=== PATIENT | female | born 1995 | race African-American/Black ===

== ENCOUNTER 2022-04-15 17:05 | Emergency (ER) | payer BC, SELFPAY ==
[2022-04-15 17:16] VITALS: BP 104/76; PULSE 113; RESP 16; TEMP 38.9; O2SAT 98
--- NOTE | 2022-04-15 17:19 | ED.URI ---
HPI - URI/Sore Throat General Chief Complaint: Upper Respiratory Infection Stated Complaint: uri Time Seen by Provider: 04/15/22 17:19 Source: patient and RN notes reviewed Mode of arrival: ambulatory Limitations: no limitations History of Present Illness HPI Narrative: 27-year-old female presents to the [facility] with complaints of body aches, sore throat, runny nose and feeling overheated since Tuesday, 2 days To treatment prior to her fall. Denies chest pain, abdominal pain. Works at [email or web address], denies anyone sick around her Onset (ago): day(s) (2) Related Data Home Medications Medication Instructions Recorded Confirmed No Home Medications 04/15/22 04/15/22 Allergies Allergy/AdvReac Type Severity Reaction Status Date / Time No Known Allergies Allergy Mild Verified 04/15/22 17:23 Review of Systems Review of Systems: All systems reviewed & are unremarkable except as noted in HPI and below Constitutional: Constitutional: Reports as per HPI, Denies chills and Reports fever(s) Eyes: Eyes: Reports no additional eye complaints ENT: Reports as per HPI and Reports sore throat Cardiovascular: Cardiovascular: Reports no additional cardiovascular complaints Respiratory: Respiratory: Reports no additional respiratory complaints Gastrointestinal: Gastrointestinal: Reports no additional gastrointestinal complaints Musculoskeletal: Musculoskeletal: Reports no additional musculoskeletal complaints Integumentary/Breasts: Skin/Breast: Reports system reviewed and no additional complaints, except as docu Neurologic: Reports system reviewed and no additional complaints, except as documented Psychiatric: Psychiatric: Reports no additional psychiatric complaints Allergic/Immunologic: Allergic/Immunologic: Reports no additional allergic/immunologic complaints PMFSH Social History Social History (Updated 04/15/22 @ 21:01 by Jada Decker APRN) Gender identity (if verbalized by the patient): Female Comments At the time of my signature, I reviewed and agree with the nursing past medical, surgical, social, and family history. There is no relevant family history pertinent to the patient complaint. Exam Const: General: no acute distress, alert, ill appearing acutely and well nourished Nutritional Appearance: well nourished Orientation/consciousness: patient oriented x3 Limitations: no limitations HENMT: Head: normal to inspection Ears: external ears normal, TM's normal bilaterally and EAC's normal Face/Nose/Sinus: Normal external nose present and Normal nares present Face and sinus: normal facial exam Mouth: Yes Normal oral and palatal mucosa present, Yes lip normal and Yes moist mucous membranes Throat: posterior oropharynx normal and uvula midline Eyes: General: appearance normal, both eyes and all related structures Conjunctivae: conjunctivae normal Pupils: Equal, round and reactive pupils present Neck: Neck: normal visual inspection, no lymphadenopathy and no meningeal signs Chest: Chest palpation & inspection: normal inspection of the chest Resp: Effort & Inspection: normal respiratory effort and no use of accessory muscles Auscultation: clear to auscultation bilaterally, no crackles, no rales, no rhonchi and no wheezes Cardio: Rate: regular rate Rhythm: regular rhythm Skin: General skin exam: normal color Rashes: no rashes Wounds: no wounds Neuro: General: patient oriented x3, moves all extremities, no meningeal signs and no focal motor deficits Cranial nerves: Yes Equal, round and reactive pupils present Speech: normal speech Gait exam (Neuro): Normal gait present Extrem: General: normal to inspection, full ROM and capillary refill normal Psych: Appearance: grossly normal and well kempt Mental Status: mental status grossly normal Affect: normal affect Attitude: cooperative Thought content: Yes Normal thought content present Course Course Emergency Course: Discharge instructions reviewed
== END 2022-04-15 17:38 | disposition home or self-care (01) ==
PROVIDERS: Emergency Provider Nurse Practitioner
DX: J10.1 Influenza due to other identified influenza virus with other respiratory manifestations (principal)
CPT/HCPCS: 87804; 99213; G0463

== ENCOUNTER 2022-06-14 18:35 | Emergency (ER) | payer BC, SELFPAY ==
[2022-06-14 18:43] VITALS: BP 114/66; PULSE 86; RESP 16; TEMP 37.4; O2SAT 100
--- NOTE | 2022-06-14 19:07 | ED.FEMALEGU ---
HPI - Female Genitourinary General Chief complaint: Urogenital-Female Stated complaint: Vaginal Problems Time Seen by Provider: 06/14/22 19:07 Source: patient, RN notes reviewed and old records reviewed Mode of arrival: ambulatory Limitations: no limitations History of Present Illness HPI Narrative: 27-year-old female presents to the [facility] with complaints of vaginal issues Reports that she saw her boom cat operator about 4 weeks ago and diagnosed with bacterial vaginitis and yeast infection. Has taken all of the medications as prescribed. States that the discomfort keeps getting worse. states she has not been sexually active since see boom cat operator. Denies any chances of STDs. Related Data Allergies Allergy/AdvReac Type Severity Reaction Status Date / Time No Known Allergies Allergy Mild Verified 06/14/22 19:03 Review of Systems Review of Systems: All systems reviewed & are unremarkable except as noted in HPI and below Constitutional: Constitutional: Reports no additional constitutional complaints Eyes: Eyes: Reports no additional eye complaints ENT: Reports system reviewed and no additional complaints, except as documented Cardiovascular: Cardiovascular: Reports no additional cardiovascular complaints, Denies chest pain and Denies dyspnea Respiratory: Respiratory: Reports no additional respiratory complaints, Denies chest congestion, Denies cough and Denies dyspnea Gastrointestinal: Gastrointestinal: Reports no additional gastrointestinal complaints, Denies abdominal pain, Denies nausea and Denies vomiting Genitourinary: Genitourinary: Reports as per HPI and Reports vaginal discharge Musculoskeletal: Musculoskeletal: Reports no additional musculoskeletal complaints Integumentary/Breasts: Skin/Breast: Reports system reviewed and no additional complaints, except as docu Neurologic: Reports system reviewed and no additional complaints, except as documented Psychiatric: Psychiatric: Reports no additional psychiatric complaints Allergic/Immunologic: Allergic/Immunologic: Reports no additional allergic/immunologic complaints PMFSH Social History Social History Gender identity (if verbalized by the patient): Female Comments At the time of my signature, I reviewed and agree with the nursing past medical, surgical, social, and family history. There is no relevant family history pertinent to the patient complaint. Exam Const: General: cooperative, healthy appearing, comfortable, no acute distress, well developed, alert and well nourished Nutritional Appearance: well nourished Orientation/consciousness: patient oriented x3 Limitations: no limitations HENMT: Head: normal to inspection Ears: hearing grossly normal bilaterally and external ears normal Face/Nose/Sinus: Normal external nose present, Normal nares present, Normal nasal mucous membranes and turbinates present and normal facial exam Face and sinus: normal facial exam Mouth: Yes Normal oral and palatal mucosa present, Yes lip normal and Yes moist mucous membranes Eyes: General: appearance normal, both eyes and all related structures Alignment and Position: alignment normal Periorbital: periorbital findings normal Conjunctivae: conjunctivae normal Pupils: Equal, round and reactive pupils present EOM: EOMs intact bilaterally Neck: Neck: normal visual inspection, full ROM, no lymphadenopathy and no meningeal signs Chest: Chest palpation & inspection: normal inspection of the chest Resp: Effort & Inspection: normal respiratory effort and able to speak in complete sentences Auscultation: clear to auscultation bilaterally, no crackles, no rales, no rhonchi and no wheezes Cardio: Rate: regular rate Rhythm: regular rhythm : General: Yes no CVA tenderness External Female Exam: normal external appearance Speculum Exam - Vagina: abnormal vaginal discharge white and malodorous Speculum Exam - Cervix: normal appearance of the
--- NOTE | 2022-06-14 19:28 | PC.NURSE ---
herpes cx sent to lab.
--- NOTE | 2022-06-14 19:29 | PC.NURSE ---
192 pelvic exam done by graduate engineer with rn at bedside.
== END 2022-06-14 19:30 | disposition home or self-care (01) ==
PROVIDERS: Emergency Provider Nurse Practitioner
DX: N76.0 Acute vaginitis (principal)
CPT/HCPCS: 87255; 99213; G0463

== ENCOUNTER 2023-05-16 16:29 | Outpatient (RCR) | payer OTHER, SELFPAY ==
[2023-05-13 11:48] VITALS: BP 112/68; PULSE 80
--- NOTE | ~2023-05-16 | US_ITS ---
EXAMINATION: US OB BPP wo non-stress DATE: 05/13/2023 11:51 INDICATION: IUGR during third trimester TECHNIQUE: Real-time pelvic ultrasound was performed. The interpreting radiologist was not present fo r the study. COMPARISON: None. FINDINGS: There is a single living fetus in vertex presentation. The placenta is posterior. heart rate is 130 beats per minute (bpm). Biophysical profile performed by the technologist: breathing (30 sec sustained breathing in 30 minutes): 2 out of 2 movement (3 gross body movements in 30 minutes): 2 out of 2 tone (one episode of dxkfmar-mljjoozsx-uoktyef limb movement): 2 out of 2 Amniotic fluid pocket (2 cm): 2 out of 2 Total score: 8 out of 8 IMPRESSION: 1. Single living fetus in vertex presentation. 2. Biophysical profile 8 out of 8. Reviewed, dictated and finalized at location [facility]. [facility] LAB TECHNICIAN
[2023-05-16 17:59] VITALS: BP 112/68; PULSE 80
== END 2023-08-11 23:59 | disposition home or self-care (01) ==
LOC: ANHOBOP 16:29
PROVIDERS: Visit Provider Obstetrics & Gynecology
DX: O36.5930 Maternal care for other known or suspected poor fetal growth, third trimester, not applicable or unspecified (principal); Z3A.35 35 weeks gestation of pregnancy; O36.8130 Decreased fetal movements, third trimester, not applicable or unspecified; Z3A.36 36 weeks gestation of pregnancy
CPT/HCPCS: 59025; 76819

== ENCOUNTER 2023-05-31 16:59 | Inpatient (IN) | payer OTHER, SELFPAY ==
[2023-05-31 17:33] VITALS: BP 125/85; PULSE 105
[2023-05-31 17:47] VITALS: BMI 37.0
[2023-05-31 17:48] LABS: Basophils Percent Auto 0.3 % (0.2-1.2); Eosinophils Absolute Auto 0.1 K/mm3 (0-0.3); Eosinophils Percent Auto 0.8 % (0-4.4); Hemoglobin 11.2 g/dL (12.0-15.0); Immature Granulocyte Absolute 0.06 K/mm3 (0.00-0.031); Immature Granulocyte Percent A 0.5 % (0-0.5); Lymphocytes Absolute Auto 1.93 K/mm3 (0.9-3.2); Lymphocytes Percent Auto 16.7 % (18.3-44.2); Mean Corpuscular Hemoglobin 27.6 pg (26-34); Mean Corpuscular Volume 86.2 fl (80-100); Mean Platelet Volume 10.7 fl (7.4-10.4); Monocytes Absolute Auto 0.7 K/mm3 (0.1-0.6); Monocytes Percent Auto 6.1 % (2.6-8.5); Neutrophils Absolute Auto 8.8 K/mm3 (1.3-6.7); Neutrophils Percent Auto 75.6 % (45.5-73.1); Platelet Count Result 241 k/mm3 (150-375); Red Blood Count 4.06 M/mm3 (4.2-5.4); Red Cell Distribution Width 15.4 % (11.5-14.5); White Blood Count 11.6 K/mm3 (4.5-10.0)
--- NOTE | 2023-05-31 17:49 | LDADM ---
This patient, Frank Harris, was admitted to Labor/Delivery/Recovery 107 on 05/31/23 at 16:59. Plans for labor, pain management and were discussed with patient. Patient/family oriented to hospital policies and general routines including ID bracelet, bed and alarms, visiting hours, pain management, procedures, bathroom and other care routines, personal items, smoking policy, room service/diet and guest tray routines, security routines, and visiting hours. Patient/Family are encouraged to report perceived risks to care and to ask questions if they do not understand what they are told or what they should do. See OBIX for further documentation.
[2023-05-31 18:00] VITALS: BP 127/75; PULSE 81
[2023-05-31] MEDS: LACTATED RINGERS 1,000 ML 125 ML IV CONT (18:15)
[2023-05-31] MEDS: OXYTOCIN 30 UNITS/NS 500 ML 30 UNITS/500 ML BAG IV CONT (18:16)
[2023-05-31 18:28] VITALS: TEMP 36.6
--- NOTE | 2023-05-31 20:08 | WPDANESEPP ---
Anes - Eval Pre Procedure Procedure: labor epidural Date/Time: 05/31/23 20:08 Pre Op Diagnosis: IOL Patient Data Age: 28 Gender: F Height: 1.65 m Weight: 101 kg Last Vital Signs Temp 36.6 C 05/31/23 18:28 Pulse 81 05/31/23 18:00 BP 127/75 05/31/23 18:00 O2 Del Method Room Air 05/31/23 17:47 Allergies Allergy/AdvReac Type Severity Reaction Status Date / Time No Known Allergies Allergy Mild Verified 05/23/23 14:27 Home Medications Medication Instructions Recorded Confirmed Type vit no.95-ferrous 1 tablet PO DAILY 05/13/23 05/23/23 History fumarate 28 mg-folic acid 800 mcg tablet () Laboratory Tests 05/31/23 17:35 WBC 11.6 H K/mm3 (4.5-10.0) RBC 4.06 L M/mm3 (4.2-5.4) Hgb 11.2 L g/dL (12.0-15.0) Hct 35.0 L % (37.0-47.0) MCV 86.2 fl (80-100) MCH 27.6 pg (26-34) MCHC 32.0 g/dl (32-36) RDW 15.4 H % (11.5-14.5) Plt Count 241 k/mm3 (150-375) MPV 10.7 H fl (7.4-10.4) Immature Gran % (Auto) 0.5 % (0-0.5) Neut % (Auto) 75.6 H % (45.5-73.1) Lymph % (Auto) 16.7 L % (18.3-44.2) Mccormick % (Auto) 6.1 % (2.6-8.5) Eos % (Auto) 0.8 % (0-4.4) Baso % (Auto) 0.3 % (0.2-1.2) Lymph # (Auto) 1.93 K/mm3 (0.9-3.2) Mccormick # (Auto) 0.7 H K/mm3 (0.1-0.6) Eos # (Auto) 0.1 K/mm3 (0-0.3) Baso # (Auto) 0.0 K/mm3 (0.0-0.1) Abs Immat Gran (auto) 0.06 H K/mm3 (0.00-0.031) Absolute Neuts (auto) 8.8 H K/mm3 (1.3-6.7) Absolute Nucleated RBC 0.0 K/mm3 (0.0-0.012) Nucleated RBC % 0.0 % (0.0-0.2) RPR Pending Blood Type A Positive Antibody Screen Negative Patient hx anesthesia problems: none Family hx anesthesia problems: none Results Review: All pre-operative results and documents have been reviewed as part of the pre-operative evaluation. [facility] Past Medical History Medical History (Updated 05/31/23 @ 20:09 by Sinai Dang CRNA) Obese Family History Family History Father Gout Hypertension Mother Hypertension Grandparent Congestive heart failure Hypertension Grandparent No problems noted. Social History Social History Smoking status: Never smoker Substance use: never Lack of Transportation: No Lack of Food: Never True Current Housing: I Have Housing Concerned About Future Housing: No Difficulty Paying Gas/Electric Bills: No Difficulty Paying for Meds: No Currently Unemployed: No Education: Bachelor's Degree Difficulty w/ Childcare or Family Care: No Gender identity (if verbalized by the patient): Female Spiritual care concerns: No Exam Day of Procedure 05/31/23 20:08 Patient weight: obese Heart: regular rate and rhythm Lungs: normal air movement Airway: Mallampati scale Neurological: alert and oriented
[2023-05-31 23:54] VITALS: TEMP 36.8
[2023-06-01] VITALS (120 sets, daily range): BP systolic 76–147; BP diastolic 25–127; PULSE 64–213; RESP 18; TEMP 36.3–37.3; O2SAT 98–100
[2023-06-01] MEDS: LACTATED RINGERS 1,000 ML 125 ML IV CONT ×3 (02:02→10:51)
--- NOTE | 2023-06-01 07:47 | WPDOBADMIT ---
Obstetrics - Admit Note Admission Note: record reviewed. No pertinent additions to the history and/or any subsequent changes in the physical findings that are not consistent with the expected course of the were found. Additions to the history and/or subsequent changes in the physical findings follow. Pt here for IOL for IUGR. SVE /-2. AROM moderate amount of clear odorless fluid. Anticipate vaginal delivery.
[2023-06-01] MEDS: fentaNYL CITRATE INJ (*CRX) 100 MCG/2 ML VIAL 50 MCG IV PUSH (08:44)
--- NOTE | 2023-06-01 14:07 | PM.OBPRVD ---
OB - Vaginal Delivery Note Procedure Delivery date: 06/01/23 Events: Intrauterine Growth Restriction (IUGR) Induction method: AROM and Per Pitocin Protocol Delivery monitor: External FHT and Internal Uterine Route of delivery: Episiotomy description: None Laceration Description: Perineal - 2nd Degree Delivery repair: vicryl Specimen: Yes Quantitative Blood Loss (ml): 300 Anesthesia type: Epidural Disposition: Floor Complications: None Baby Date of : 06/01/23 Time of : 13:47 Weeks of gestation at delivery: 39 gender: Male Weight (pounds): 6 Weight (ounces): 6 presentation: vertex Placenta delivery description: Spontaneous Cord Vessel Description: 3 Vessels, Nuchal Cord, Loose and Around Extremity (left arm) score one minute: 8 score five minutes: 9
[2023-06-01] MEDS: miSOPROStol 200 MCG TABLET 1000 MCG (14:13)
--- NOTE | 2023-06-01 14:22 | PM.OBPRVD ---
OB - Vaginal Delivery Note Procedure Delivery date: 06/01/23 Events: Intrauterine Growth Restriction (IUGR) Laceration Description: Perineal - 2nd Degree Anesthesia type: Epidural Complications: Other complications (PPH identified. Retained placenta removed. Cytotec administered. Fundus remains boggy. Methergine and Cate placed) [place] Baby Date of : 06/01/23 Time of : 13:47 Weeks of gestation at delivery: 39 Infant gender: Male Weight (pounds): 6 Weight (ounces): 6 presentation: vertex Placenta delivery description: Spontaneous Cord Vessel Description: 3 Vessels, Nuchal Cord, Loose and Around Extremity (left arm) score one minute: 8 score five minutes: 9
[2023-06-01] MEDS: METHYLERGONOVINE MALEATE 0.2 MG/ML VIAL IM (14:23)
[2023-06-01] MEDS: OXYTOCIN 30 UNITS/NS 500 ML 30 UNITS/500 ML BAG 999 UNITS IV CONT (14:35)
[2023-06-01 14:39] LABS: Rapid Plasma Reagin Non-Reactive (NonReactive)
[2023-06-01] MEDS: OXYTOCIN 30 UNITS/NS 500 ML 30 UNITS/500 ML BAG 125 UNITS IV CONT (14:47)
[2023-06-01] MEDS: ceFAZolin 2 GM/D5W 50 ML 2 GM/50 ML BAG IVPB (15:39)
--- NOTE | 2023-06-01 18:27 | PM.OBPNVD ---
OB - PN: Subj Subjective Date/time seen: 06/01/23 18:27 Interval history: bleeding minimal, deflated cervical cuff and waited 30 minutes. courtney removed, fundus firm at [facility]. OB - PN: Obj Data Labs 05/31/23 17:35 Labs: Laboratory Results - last 24 hr 05/31/23 17:35 RPR Non-reactive Blood Type A Positive Antibody Screen Negative OB - PN A/P Time Spent With Patient Time: Total time spent is greater than 50% in coordination of care (as documented) at patient's floor/unit and/or counseling patient:
--- NOTE | 2023-06-01 18:43 | OBPPTRN ---
Patient transferred to post room #280 via wheelchair. Family present. Oriented to unit, room, information board, rooming in, admission packet and security measures. Patient verbalizes understanding.
[2023-06-01] MEDS: IBUPROFEN 600 MG TABLET PO (20:30)
[2023-06-02 00:55] VITALS: BP 108/70; PULSE 83; RESP 18; TEMP 36.7; O2SAT 96
[2023-06-02 04:03] VITALS: BP 118/55; PULSE 89; RESP 18; TEMP 36.6; O2SAT 100
[2023-06-02 05:20] LABS: Hemoglobin 10.5 g/dL (12.0-15.0)
[2023-06-02 07:25] VITALS: BP 112/73; PULSE 77; RESP 16; TEMP 37.1; O2SAT 100
--- NOTE | 2023-06-02 08:02 | PM.OBPNVD ---
OB - PN: Subj Subjective Date/time seen: 06/02/23 08:02 Interval history: bleeding minimal, deflated cervical cuff and waited 30 minutes. courtney removed, fundus firm at [facility]. Patient comments: no complaints, pain well controlled, incisional pain, tolerating diet and flatus present OB - PN: Obj Data Labs 06/02/23 03:52 Labs: Laboratory Results - last 24 hr 05/31/23 06/02/23 17:35 03:52 Hgb 10.5 L Hct 33.0 L RPR Non-reactive OB - PN A/P Plan day: 1 Plan: routine care Comments: No problems, routine care Time Spent With Patient Time: Total time spent is greater than 50% in coordination of care (as documented) at patient's floor/unit and/or counseling patient: Exam Const: General: comfortable, no acute distress and alert Resp: Effort & Inspection: normal respiratory effort Auscultation: no crackles, no rales and no rhonchi Cardio: Rate: regular rate Heart sounds: no click, no murmurs and no rubs GI: Inspection: non-distended GI Palp: No Tenderness to palpation present (GI) Auscultation: normal bowel sounds Other: Incision - CDI Extrem: General: normal to inspection, no pedal edema and no calf tenderness
[2023-06-02] MEDS: IBUPROFEN 600 MG TABLET PO (08:39)
[2023-06-02] MEDS: DOCUSATE SODIUM 100 MG CAPSULE PO (08:40)
[2023-06-02] MEDS: MULTIVIT/MIN/PREN/FOL AC/IRON TABLET 1 TAB PO (08:40)
--- NOTE | 2023-06-02 08:53 | WPDANLDPN2 ---
Anes-Prog Note L&D Date/Time: 06/02/23 08:53 Comfortable throughout: labor and delivery Neuraxial method: epidural Epidural/Spinal procedure site: clean & non-tender Neuro status: Neuro function grossly intact. Cardiovascular status: normal Respiratory status: normal Airway patency: baseline Mental status: baseline Post-Op hydration status: normal Vital Signs: Last Vital Signs Temp 37.1 C 06/02/23 07:25 Pulse 77 06/02/23 07:25 Resp 16 06/02/23 07:25 BP 112/73 06/02/23 07:25 Pulse Ox 100 06/02/23 07:25 O2 Del Method Room Air 05/31/23 17:47 Pain score (VAS): 2/10 Post-procedural complaints: none Patient feedback: Patient satisfied with anesthetic care.
[2023-06-02 12:07] VITALS: BP 109/57; PULSE 74; RESP 16; TEMP 36.9; O2SAT 99
[2023-06-02 19:00] VITALS: BP 122/80; PULSE 92; RESP 18; TEMP 36.8
--- NOTE | 2023-06-03 07:46 | PM.OBPNVD ---
OB - PN: Subj Subjective Date/time seen: 06/03/23 07:46 Interval history: PPD 2 doing well desires DC home OB - PN: Obj Data Labs 06/02/23 03:52 OB - PN A/P Plan day: 2 Plan: routine care and discharge home Time Spent With Patient Time: Total time spent is greater than 50% in coordination of care (as documented) at patient's floor/unit and/or counseling patient: Review of Systems Review of Systems: All systems reviewed & are unremarkable except as noted in HPI and below Exam Const: General: cooperative, healthy appearing and comfortable Resp: Effort & Inspection: normal respiratory effort Cardio: Rate: regular rate GI: Other: soft Neuro: General: patient oriented x3 Extrem: Right lower extremity: normal to inspection Left lower extremity: normal to inspection Psych: Appearance: grossly normal
--- NOTE | 2023-06-03 07:48 | PM.OBDSVD ---
DS: Admitting Diagnosis Discharge Date 06/03/23 Admitting Diagnosis IOL IUGR DS: Discharge Diagnosis Discharge Diagnosis (1) Vaginal delivery: Code(s): O80 - Encounter for full-term uncomplicated delivery Status: Acute OB - DS: Summary OB Procedures : None OB Procedures Intrapartum: Spontaneous Vag Delivery OB Procedures: : None Peripartum Data Laceration Description: Perineal - 2nd Degree Episiotomy description: None Time Spent with Patient Time attestation: Total time spent providing and/or coordinating discharge services: DS: Data Data Completed and Pending Pending studies at discharge: Pending at discharge 06/01/23 13:50 Surgical [PTH] Routine Discharge Plan Discharge Attending physician on discharge: Kira Shelton Discharging Clinician: Cheryl Barksdale Patient Disposition: Home, Self-Care Activity: pelvic rest Diet: regular Patient Instructions: Antibiotic Form Stand Alone Forms: General Discharge Information Follow-up/Referrals: Cheryl Barksdale, CNM [Certified Nurse Office Machinery Or Equipment Installer] - 4 Weeks Discharge Medications: New ibuprofen 600 mg Tablet 600 mg PO Q6H PRN (Reason: Cramping) Qty: 30 0RF Continued PNV cmb#95-ferrous fumarate-FA [] 28 mg iron- 800 mcg Tablet 1 tablet PO DAILY Date of admission: 05/31/23 16:59 Primary Care Provider: PHYSICIAN,BODY SHOP ESTIMATOR Admitting Provider: Kira Shelton Attending physician on admission: Kira Shelton Condition: Stable
[2023-06-03 08:00] VITALS: PULSE 76; RESP 18; O2SAT 99
[2023-06-03 08:09] VITALS: BP 118/62; PULSE 76; RESP 18; TEMP 36.6; O2SAT 99
[2023-06-03] MEDS: MULTIVIT/MIN/PREN/FOL AC/IRON TABLET 1 TAB PO (08:50)
[2023-06-03] MEDS: DOCUSATE SODIUM 100 MG CAPSULE PO (08:50)
[2023-06-03] MEDS: IBUPROFEN 600 MG TABLET PO (08:51)
--- NOTE | 2023-06-03 10:55 | PC.NURSE ---
Patient viewed the discharge video Mother & Baby Care, The First Two Weeks . Patient was given the opportunity and encouraged to ask questions. Patient verbalized understanding of information shared and has been given the mother/baby guide for home reference.
--- NOTE | 2023-06-03 15:28 | PC.NURSE ---
[id number] Introductions were made, then consulted with patient to assess needs related to . Discussed with mother her?plans to pump and feed EBM with a bottle. Mother has 50mls sitting on her night stand as we discuss protecting her milk supply, her goals and pumping. Resources provided for inpatient and outpatient services with community [facility] connection, OB office and the mom/baby guide. Mother voiced understanding of information and will call if there is a request for assistance.
--- NOTE | 2023-06-03 15:36 | PC.NURSE ---
1215- Pt has been using her own pump. Instructions given on cleaning, care, usage, that there should be no pain, pumping schedule for milk production, collection, and storage of human milk. Encouraged to pump for comfort and nipple stretching/stimulation for adequate milk production every 3 hours (8 times in 24 hours) 1-2 times at night. Mother voiced understanding of the education shared along with mom/baby guide and reaching out to community/outpatient resources.
--- NOTE | 2023-06-03 15:42 | PC.NURSE ---
[id number] Introductions were made, then consulted with patient to assess needs related to . Discussed with mother her?plans to pump and feed EBM with a bottle since is not latching. Instructions given on cleaning, care, usage, that there should be no pain, pumping schedule for milk production, collection, and storage of human milk. Patient encouraged to pump for comfort and nipple stretching/stimulation for adequate milk production every 3 hours (8 times in 24 hours) 1-2 times at night.?Resources provided for inpatient and outpatient services with community [facility] connection, OB office and the mom/baby guide. Mother voiced understanding of information.
[2023-06-04 09:18] VITALS: BP 122/77; PULSE 98; RESP 18; TEMP 37; O2SAT 100
== END 2023-06-03 12:55 | disposition home or self-care (01) | DRG 768 ==
LOC: ANHLDR 06-01 08:30 → ANHOB2 06-01 19:00
PROVIDERS: Advanced Practice Midwife; Admitting Provider Obstetrics & Gynecology; Visit Provider Obstetrics & Gynecology
DX: O36.5930 Maternal care for other known or suspected poor fetal growth, third trimester, not applicable or unspecified (principal); Z37.0 Single live birth; O72.0 Third-stage hemorrhage; Z3A.38 38 weeks gestation of pregnancy; O70.1 Second degree perineal laceration during delivery; O69.82X0 Labor and delivery complicated by other cord entanglement, without compression, not applicable or unspecified
CPT/HCPCS: 36415; 85014; 85018; 85025; 86592; 86850; 86900; 86901; 88307; A9270; J0690; J2210; J2590; J2795; J3010; J7120

== ENCOUNTER 2023-11-14 22:34 | Emergency (ER) | payer OTHER, SELFPAY ==
[2023-11-14 22:42] VITALS: BP 118/95; PULSE 67; RESP 18; O2SAT 99
[2023-11-14 22:59] LABS: Basophils Percent Auto 0.3 % (0.2-1.2); Eosinophils Absolute Auto 0.3 K/mm3 (0-0.3); Eosinophils Percent Auto 2.4 % (0-4.4); Hematocrit 36.3 % (37.0-47.0); Hemoglobin 11.6 g/dL (12.0-15.0); Immature Granulocyte Absolute 0.02 K/mm3 (0.00-0.031); Immature Granulocyte Percent A 0.2 % (0-0.5); Lymphocytes Absolute Auto 3.65 K/mm3 (0.9-3.2); Lymphocytes Percent Auto 33.9 % (18.3-44.2); Mean Corpuscular Hemoglobin 27.2 pg (26-34); Mean Platelet Volume 9.5 fl (7.4-10.4); Monocytes Absolute Auto 0.7 K/mm3 (0.1-0.6); Monocytes Percent Auto 6.9 % (2.6-8.5); Neutrophils Absolute Auto 6.1 K/mm3 (1.3-6.7); Neutrophils Percent Auto 56.3 % (45.5-73.1); Platelet Count Result 300 k/mm3 (150-375); Red Blood Count 4.27 M/mm3 (4.2-5.4); Red Cell Distribution Width 13.6 % (11.5-14.5); White Blood Count 10.8 K/mm3 (4.5-10.0)
[2023-11-14 23:06] LABS: Appearance Urine Clear (Clear); Bacteria Urine Rare /hpf; Bilirubin Urine Negative (Negative); Blood Urine Negative (Negative); Color Urine Yellow (Yellow); Glucose Urine UA Negative (Negative); Ketones Urine Negative (Negative); Leukocyte Esterase Ur Trace LEU/UL (Negative); Nitrate Urine Negative (Negative); Non Pathogenic Casts 0-2; Protein Urine Negative (Negative); RBC Urine 0-2 /hpf (0-2); Specific Grav Ur 1.023 (1.001-1.035); Squamous Epithelial Cell Urine Occasional /hpf (Few); pH Urine 7.5 (5.0-9.0)
[2023-11-14 23:09] LABS: Add Urine Microscopic? YES
[2023-11-14 23:11] LABS: Alanine Aminotransferase 14 U/L (6-35); Albumin Level 4.1 g/dL (3.5-5.1); Alkaline Phosphatase 69 U/L (38-126); Anion Gap 7 mmol/L (4-12); Aspartate Amino Transferase 21 U/L (14-36); Bilirubin,Total 0.3 mg/dL (0.2-1.3); Blood Urea Nitrogen 15 mg/dL (7-17); Calcium 9.1 mg/dL (8.4-10.2); Carbon Dioxide 25 mmol/L (22-30); Chloride 106 mmol/L (98-107); Estimated CRCL calculation 117 ml/min; Estimated Glomerular Filt Rate > 60; Glucose 88 mg/dL (65-110); Lipase 61 U/L (23-300); Sodium 138 mmol/L (137-145)
--- NOTE | 2023-11-14 23:13 | ED.FEMALEGU ---
HPI - Female Genitourinary General Chief complaint: Abdominal Pain Stated complaint: groin pain Time Seen by Provider: 11/14/23 22:43 Source: patient Limitations: no limitations History of Present Illness HPI Narrative: Patient is a 28-year-old female presents to the emergency department complaining of vaginal burning and burning when she pees. Patient notes this been going on for the past 1 week, has not been taking any medications for it. Patient denies any vaginal discharge, recent injuries, fever, recent illness, dyspareunia, vaginal bleeding, vaginal sores or lesions. Patient admits to history of sexually transmitted infections in the past in which she had Trichomonas and was treated to completion. Patient admits to being sexually active. Patient denies abdominal pain, pelvic pain, rash. Patient's last menstrual period was about 2 weeks ago. Related Data Home Medications Medication Instructions Recorded Confirmed vit no.95-ferrous 1 tablet PO DAILY 05/13/23 05/23/23 fumarate 28 mg-folic acid 800 mcg tablet () Allergies Allergy/AdvReac Type Severity Reaction Status Date / Time No Known Allergies Allergy Mild Verified 05/23/23 14:27 Review of Systems Review of Systems: A 10 system review of systems was completed on the patient and is negative except for what is stated in the HPI. Nursing and ancillary documentation was reviewed. [facility] Past Medical History Medical History (Updated 11/14/23 @ 23:19 by Sukhwinder Pimentel DO) Obese Family History Family History Father Gout Hypertension Mother Hypertension Grandparent Congestive heart failure Hypertension Grandparent No problems noted. Social History Social History Smoking status: Never smoker Substance use: never Do You Feel Safe in your Home?: Yes Lack of Transportation: No Lack of Food: Never True Current Housing: I Have Housing Concerned About Future Housing: No Difficulty Paying Gas/Electric Bills: No Difficulty Paying for Meds: No Currently Unemployed: No Education: Bachelor's Degree Difficulty w/ Childcare or Family Care: No Gender identity (if verbalized by the patient): Female Spiritual care concerns: No Comments At time of signature, I have reviewed and agree with nursing past medical, surgical, social and family history unless otherwise noted. Please see the nursing chart for further information. There is no relevant family history pertinent to the presenting complaint. Exam Narrative: CONST: No acute distress. Well nourished. HENMT: Head is normocephalic and atraumatic. Moist mucous membranes. EYES: No conjunctival icterus, injection, or pallor. PERRL. RESP: Able to speak in full sentences. Normal respiratory effort. CTAB. CARDIO: Regular rate. Regular rhythm. 2+ DP and radial pulses bilaterally. GI: Nondistended. No tenderness to palpation. Soft. : No CVA tenderness to palpation. SKIN: No rashes or lesions noted on exposed skin. NEURO: Oriented x3. Moves all extremities. EXTREM/MSK/BACK: No pedal edema. PSYCH: Normal affect. Course Vital Signs Vital signs: Vital Signs Pulse Rate 67 11/14/23 22:42 Respiratory Rate 18 11/14/23 22:42 Blood Pressure 118/95 H 11/14/23 22:42 Pulse Oximetry 99 11/14/23 22:42 Pulse Rate 67 11/14/23 22:42 Respiratory Rate 18 11/14/23 22:42 Blood Pressure 118/95 H 11/14/23 22:42 Pulse Oximetry 99 11/14/23 22:42 MDM - Female Genitourinary MDM Narrative Medical decision making narrative: Patient presents with the above complaint. Initial vitals are remarkable for no significant abnormalities. Physical examination as noted above. Plan discussed: Laboratory analysis. Patient admits to point with a c s s representative regularly given her lack of vaginal discharge or pelvic pain
[2023-11-15 00:31] LABS: Trichomonas Vag PCR NOT DETECTED (NOT DETECTE)
[2023-11-15 00:54] LABS: Chlamydia trachomatis NOT DETECTED (NOT DETECTE); Neisseria gonorrhoeae PCR NOT DETECTED (NOT DETECTE)
== END 2023-11-15 01:13 | disposition home or self-care (01) ==
PROVIDERS: Physician Assistant; Emergency Provider Student in an Organized Health Care Education/Training Program
DX: N39.0 Urinary tract infection, site not specified (principal); E66.9 Obesity, unspecified; Z68.34 Body mass index [BMI] 34.0-34.9, adult
CPT/HCPCS: 36415; 80053; 81001; 81025; 83690; 85025; 87086; 87088; 87491; 87591; 87661; 96365; 99284; J0696

== ENCOUNTER 2024-01-24 19:49 | Emergency (ER) | payer OTHER, SELFPAY ==
[2024-01-24 20:02] VITALS: BP 117/86; PULSE 106; RESP 16; TEMP 36.8; O2SAT 100
--- NOTE | 2024-01-24 20:06 | PC.NURSE ---
pt verbalized chemical in November 2023
[2024-01-24 20:56] LABS: Influenza A QL RT-PCR Negative (Negative); Influenza B QL RT-PCR Negative (Negative); RSV RNA, RT-PCR Negative (Negative); SARS-CoV-2 RNA PCR Negative (Negative)
--- NOTE | 2024-01-24 22:28 | ED.URI ---
HPI - URI/Sore Throat General Chief Complaint: Upper Respiratory Infection Stated Complaint: URI Time Seen by Provider: 01/24/24 21:43 Source: patient Mode of arrival: ambulatory Limitations: no limitations History of Present Illness HPI Narrative: This is a 28 yo F who presents to the ED with chief complaint of URI symptoms x 1 day. 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 Pt is having congestion, chills, body aches and sore throat. No recorded fevers. Denies dyspnea, cough, CP, abdominal pain, N/V. Related Data Home Medications Medication Instructions Recorded Confirmed vit no.95-ferrous 1 tablet PO DAILY 05/13/23 05/23/23 fumarate 28 mg-folic acid 800 mcg tablet () Allergies Allergy/AdvReac Type Severity Reaction Status Date / Time No Known Allergies Allergy Mild Verified 05/23/23 14:27 Review of Systems Review of Systems: All systems as dictated in [facility] Past Medical History Medical History (Updated 01/24/24 @ 22:33 by Eric Valladares PA-C) Obese Family History Family History Father Gout Hypertension Mother Hypertension Grandparent Congestive heart failure Hypertension Grandparent No problems noted. Social History Social History Smoking status: Never smoker Substance use: never Do You Feel Safe in your Home?: Yes Lack of Transportation: No Lack of Food: Never True Current Housing: I Have Housing Concerned About Future Housing: No Difficulty Paying Gas/Electric Bills: No Difficulty Paying for Meds: No Currently Unemployed: No Education: Bachelor's Degree Difficulty w/ Childcare or Family Care: No Gender identity (if verbalized by the patient): Female Spiritual care concerns: No Exam Narrative: GENERAL: Well-appearing, well-nourished, and in no acute distress. HEAD: Normocephalic, atraumatic. EYES: PERRLA and EOMI. ENT: Nares clear, no rhinorrhea or epistaxis. Mucous membranes moist. Oropharynx without tonsillar hypertrophy exudate or other lesions. NECK: Supple. No adenopathy or masses. CHEST: No respiratory distress. Clear to auscultation. No wheezes rales or rhonchi HEART: Regular rate and rhythm. No murmur heard. Normal peripheral pulses. ABDOMEN: Soft, nontender, nondistended, normal active bowel sounds. MSK: Normal range of motion. No edema. SKIN: Warm, dry, no rash. NEURO: Alert and oriented x4. No focal deficits. PSYCH: Normal mood and affect. Course Vital Signs Vital signs: Vital Signs Temperature 98.3 F 01/24/24 20:02 Pulse Rate 106 H 01/24/24 20:02 Respiratory Rate 16 01/24/24 20:02 Blood Pressure 117/86 01/24/24 20:02 Pulse Oximetry 100 01/24/24 20:02 Oxygen Delivery Room Air 01/24/24 20:02 Temperature 98.3 F 01/24/24 20:02 Pulse Rate 106 H 01/24/24 20:02 Respiratory Rate 16 01/24/24 20:02 Blood Pressure 117/86 01/24/24 20:02 Pulse Oximetry 100 01/24/24 20:02 Oxygen Delivery Room Air 01/24/24 20:02 MDM - URI/Sore Throat MDM Narrative Medical decision making narrative: This 28 yo F patient presents with symptoms suspicious for likely viral upper respiratory infection. Differential includes bacterial pneumonia, sinusitis, allergic rhinitis, COVID. Viral swabs (-) here. Do not suspect underlying cardiopulmonary process. I considered, but think unlikely, dangerous causes of this patient?s symptoms to include ACS, CHF or COPD exacerbations, pneumonia, pneumothorax. Patient is nontoxic appearing and not in need of emergent medical intervention. Plan: reassurance, reassessment, over the counter medications, discharge with PCP followup Lab Data Labs: Lab Results 01/24/24 Range/Units 20:07 Influenza A (RT-PCR) Negative (Negative) Influenza B (RT-PCR) Negative (Negative) RSV (RT-PCR) Negativ
[2024-01-24 22:43] VITALS: BP 136/75; PULSE 86; RESP 16; TEMP 37.1; O2SAT 98
== END 2024-01-24 22:44 | disposition home or self-care (01) ==
PROVIDERS: Emergency Medicine; Emergency Provider Physician Assistant
DX: J06.9 Acute upper respiratory infection, unspecified (principal); Z20.822 Contact with and (suspected) exposure to COVID-19; E66.9 Obesity, unspecified; Z68.35 Body mass index [BMI] 35.0-35.9, adult
CPT/HCPCS: 87637; 99283

== ENCOUNTER 2024-08-28 07:58 | Emergency (ER) | payer OTHER, SELFPAY ==
--- NOTE | ~2024-08-28 | XR_ITS ---
EXAMINATION: XR chest 1V portable DATE: 08/28/2024 10:42 INDICATION: Flulike symptoms. TECHNIQUE: A single frontal view of the chest was obtained on 2 radiographs. COMPARISON: None. FINDINGS: There is no pneumonia, pleural effusion, or pneumothorax. The heart size is normal. IMPRESSION: 1. No acute cardiopulmonary disease. Reviewed, dictated and finalized at location B.
[2024-08-28 08:03] VITALS: BP 120/83; PULSE 112; RESP 16; TEMP 36.6; O2SAT 99
--- OUTSIDE RECORDS SUMMARY | 2024-08-28 08:04 | XMS_ITS | Data Portability ---
Author Organization [employer] , [facility] Address [address] [place] [address] Assessment Encounter Date Assessment Date Assessment LastModified by Organization Details LastModified Time 09/21/2022 09/21/2022 Patient is new to our Practice. She presents today for a gynecological Annual Exam. Patients Past Medical History and Family History reviewed. Annual Exam: She reports frequent BV and Yeast- education given. Her menses are regular, occurring every 1 month(s). Menses lasts for 5 days. Reports they are not heavy or painful. Denies spotting in between. LMP: 09/05/2022 Pt is currently using nothing for contraception. She is satisfied with her current method. Pap History: 2019 She is due for a pap smear. Breast History: She denies breast symptoms. Education on Breast Self Awareness given. Family History: Negative for Breast Cancer, Cervical Cancer, Colon Cancer, Endometrial Cancer and Ovarian Cancer. MYRisk test offered and declined. Social History: She is currently sexually active with a male partner. She denies complaints about sexual activity. Patient reports feeling safe at home from emotional, physical, and verbal abuse. She does not desire STD testing. Exercise: Occasional She wears her seat belt. She does not text and drive. The patient denies smoking and recreational drugs. She denies drinking alcohol. Patient is regularly seen by PCP for preventative care: Yes [email or web address] Not available 09/21/2022 16:59:14 Plan of Treatment Reminders Order Date Submit Date Provider Last Modified By Organization Details Last Modified Time Details Appointments None recorded. Lab bacterial vaginosis + vaginitis panel, vaginal 2022 023 [facility], [address] [place], [address], 3 14:44:09 unlisted lab - STD screening ([facility]) 2022 023 [facility], [address] [place], [address], 3 16:48:07 unlisted lab - Pap reflex hold [email or web address] [facility], [address] [place], [address], 3 17:24:47 pap, LB 2022 023 [facility], [address] [place], [address], 13:14:39 Referral None recorded. Procedures None recorded. Surgeries None recorded. Imaging None recorded. Medication Orders None recorded. Patient TargetsNo targets recorded. Patient Instructions Encounter Date Encounter Id Patient Instructions Last Modified By Organization Details Last Modified Time 09/21/2022 [id number] Patient Health Questionnaire-9* [email or web address] Not available 10/14/2022 14:28:02 A healthy lifestyle: care instructions [email or web address] Not available 09/21/2022 16:48:00 substance use disorder: care instructions [email or web address] Not available 09/21/2022 16:47:59 tobacco cessation [email or web address] Not availabl e 09/21/2022 16:48:00 Following the [employer] Food Guide: Care Instructions [email or web address] Not available 09/21/2022 16:48:00 exercise program : getting started [email or web address] Not available 09/21/2022 16:48:00 exposure to sexually transmitted infections: care instructions [email or web address] Not available 09/21/2022 16:48:13 contraception information [email or web address] Not available 09/21/2022 16:48:00 Certain habits m ay increase your risk: -lack of sleep -eating excessive amounts of sugar -not changing tampons or pads often enough -wearing tight, synthetic, or wet garments -using irritating bath products, laundry detergent, lubes, or spermicides -using a contraceptive sponge The following medications or conditions may also increase your risk: -stress -antibiotics -weak immune system -high blood sugar -hormonal imbalance near your menstrual cycle - Certain lifestyle changes can help reduce your risks for infection. -Wear loose fitting cotton clothing and underwear. -Change underwear often and keep pelvic area dry. -Use natural soaps and laundry detergent. -Avoid douching. -Eat foods rich in probiotics. -Change pads and tampons often. -Keep blood sugar levels under control. -Limit alcohol consumption. [email or web address] Not available 09/21/2022 17:00:30 Reason for Referral None Reported. Results Created Date Observation Date Name Description Value Unit Range Abnormal Flag Note LastModifiedBy Organization Detail LastModifiedTime 09/22/1909/22/2022 VAGIN ITIS PLUS STD PANEL bacterial vaginosis BV neg negati ve normal Not Available [facility] [address] [place] [address], [address], 09/22/2022 14:44:08 09/22/19 23 09/22/2022 VAGIN ITIS PLUS STD PANEL luna species C. spp neg negati ve normal Not Available [address], [address], 09/22/2022 14:44:08 09/22/19 23 09/22/2022 VAGIN ITIS PLUS STD PANEL luna glabrata C. gla neg negati ve normal Not Available [address], [address], 09/22/2022 14:44:08 09/22/19 23 09/22/2022 VAGIN ITIS PLUS STD PANEL trichomonas vaginalis CV/TV TRICH POS negati ve abnormal Not Available [address], [address], 09/22/2022 14:44:08 09/22/19 23 09/22/2022 VAGIN ITIS PLUS STD PANEL chlamydia trachomatis CT neg negati ve normal This repor t is inten ded for us in clini [facility] and manag ement of roberta casanova. It is not inten ded for use in medic al-le gal appli catio n. Not Available [address], [address], 09/22/2022 14:44:08 09/22/19 23 09/22/2022 VAGIN ITIS PLUS STD PANEL neisseria gonorrhoeae GC neg negati ve normal This repor t is inten ded for us in clini [facility] and manag ement of patielina nts. It is not inten ded for use in medic al-le gal appli catio n. Not Available [address], [address], 09/22/2022 14:44:08 09/22/19 23 09/22/2022 STD SCREE JORGE ALBERTO ([facility] ) hep BS Ag Non-Re active non-re active normal Not Available [address], [address], 09/22/2022 16:48:07 09/22/19 23 09/22/2022 STD SCREE JORGE ALBERTO ([facility] ) hep C Ab Non-Re active non-re active normal Not Available [address], [address], 09/22/2022 16:48:07 09/22/19 23 09/22/2022 STD SCREE JORGE ALBERTO ([facility] ) HIV 1/2 Ag/Ab Non-Re active non-re active normal Not Available [address], [address], 09/22/2022 16:48:07 09/22/19 23 09/22/2022 STD SCREE JORGE ALBERTO ([facility] ) syphilis Ab Non-Re active non-re active normal Not Available [address], [address], 09/22/2022 16:48:07 09/22/19 23 09/28/2022 THINP REP TIS PAP clinical information: normal None given Not Available [facility] [address] [place], [address], 09/28/2022 13:14:39 09/22/19 23 09/28/2022 THINP REP TIS PAP LMP: normal None given Not Available [address], [address], 09/28/2022 13:14:39 09/22/19 23 09/28/2022 THINP REP TIS PAP prev. Pap: normal None given Not Available [address], [address], 09/28/2022 13:14:39 09/22/19 23 09/28/2022 THINP REP TIS PAP prev. BX: normal None given Not Available [address], [address], 09/28/2022 13:14:39 09/22/19 23 09/28/2022 THINP REP TIS PAP source: normal None given Not Available [address], [address], 09/28/2022 13:14:39 09/22/19 23 09/28/2022 THINP REP TIS PAP statement of adequacy: normal Satis facto ry for evalu ation . Endoc ervic al/tr ansfo rmati on zone compo nent prese nt. Age and/o r menst rual statu s not provi ded Not Available [address], [address], 09/28/2022 13:14:39 09/22/19 23 09/28/2022 THINP REP TIS PAP interpretati on/result: normal Negat román for intra epith elial lesio n or malleoncio jackson . Not Available [address], [address], 09/28/2022 13:14:39 09/22/19 23 09/28/2022 THINP REP TIS PAP comment: normal This Pap test has been evalu ated with compu ter alan vince techn ology . Not Available [address] [address] [place], [address], 09/28/2022 13:14:39 09/22/1909/28/2022 THINP REP TIS PAP cytotechnolo gist: normal MDG, CT( CP) CT scree jorge alberto locat ion: [place] [address] [address] [place] [address] Not Available [address] [address] [place], [address], 09/28/2022 13:14:39 09/22/19 23 09/28/2022 THINP REP TIS PAP comment EXPLA NATOR Y NOTE: The Pap is a scree jorge alberto test for cervi kaiser cance r. It is not a diagn ostic test and is subje ct to false negat román and false posit román resul ts. It is most relia ble when a satis facto ry sampl e, regul will obtai linus, is submi tted with relev ant clini [facility] findi ngs and histo ry, and when the Pap resul t is evalu ated along with histo tanisha and curre nt clini [facility] infor matio n. Not Available [address] [address] [address], [place], [address], 09/28/2022 13:14:39 Result Notes None recorded. Procedures Surgical History Date Name Laterality Status Provider Name and Address Organization Details Recorded Time 09/21/2022 Date of Last Pap Smear completed [facility]- [address] [facility], [place], [address], [facility] 09/22/2022 15:10:09 Imaging Results None recorded. Procedure Notes None recorded. Medical Equipment None Reported. Allergies No known drug allergies Medications Name Sig Start Date Stop Date Status Note LastModified by Organization Details LastModified Time fluconazole 150 mg tablet TAKE DIRECTED 09/21 completed Not Available Not Available Not Available hydrocodone 5 mg-acetamin ophen 325 mg tablet TAKE 1 TABLET BY MOUTH EVERY 4 TO 6 HOURS NEEDED FOR PAIN 09/21 completed Not Available Not Available Not Available metronidazo le 0.75 % (37.5 mg/5 gram) vaginal gel INSERT VAGINALLY AT NIGHT FOR 5 DAYS 09/21 completed Not Available Not Available Not Available metronidazo le 500 mg tablet TAKE 1 TABLET BY MOUTH EVERY 12 HOURS FOR 7 DAYS active Not Available Not Available No t Available amoxicillin 875 mg tablet TAKE 1 TABLET BY MOUTH TWICE DAILY UNTIL GONE 09/21 completed Not Available Not Available Not Available ergocalcife rol (vitamin D2) 1,250 mcg (50,000 unit) capsule TAKE 1 CAPSULE BY MOUTH ONCE A WEEK 09/21 completed Not Available Not Available Not Available Vitals Date Recorded Body weight Body temperature Body mass index (BMI) Body height Systolic blood pressure Diastolic blood pressure Provider Name and Address Organization Details Last Updated DateTime 3 [address].5 2 g 97.7 [degF] 34.8 kg/m2 165.1 cm 120 mm[Hg] 84 mm[Hg] Consuelo Estrada [facility] 16:43:11 Social History Question Answer Notes LastModified by Organizat ion Details LastModified Time Tobacco Smoking Status Never Smoker Consuelo Atjoe null, [facility] 09/21/2022 16:38:46 What Is Your Level Of Alcohol Consumption? Moderate [email or web address] Information not available 09/21/2022 Are You Blind Or Do You Have Difficulty Seeing? No [email or web address] Information not available 09/21/2022 Are You Deaf Or Do You Have Serious Difficulty Hearing? No [email or web address] Information not available 09/21/2022 What Type Of Diet Are You Following? REGULAR Information not available 09/21/2022 Which Illicit Or Recreational Drugs Have You Used? Marijuana [email or web address] Information not available 09/21/2022 What Is Your Relationship Status? Single [email or web address] Information not available 09/21/2022 Are You Sexually Active? Yes [email or web address] Information not available 09/21/2022 Do You Use Any Illicit Or Recreational Drugs? Yes [email or web address] Information not available 09/21/2022 Do You Or Have You Ever Used Any Other Forms Of Tobacco Or Nicotine? No [email or web address] Information not available 09/21/2022 Sex: Unknown Functional Status Question Answer Note LastModified by Organization D etails LastModified Time What is your exercise level? Moderate [email or web address] Information not available 09/21/2022 Mental Status None recorded. Family History Relationship Description Onset Age of this Age Resolved Age Notes LastModified by Organization Details LastModified Time Mother Hypertensive disorder [email or web address] Not available 2022 16:34:19 Father Hypertensive disorder [email or web address] Not available 2022 16:34:19 Father Diabetes mellitus [email or web address] Not available 2022 16:34:19 Medical History No medical history recorded. Gynecological History Statement/Question Response Date of Last Colonoscopy Flow Moderate Date of LMP 09/05/2022 Date of Last Pap Smear 09/21/2022 Duration of Flow (days) 5 Most Recent Mammogram Current Control Method None Age at Menarche 12 Obstetrics History GPAL:G 0 P 0 0 0 0 Past Encounters Encounter ID Performer Location Encounter Start Date Encounter Closed Date Diagnosis/Indication Diagnosis SNOMED-CT Code Diagnosis ICD10 Code [id number] [facility] [address] [place] [address] 09/21/2022 16:30:43 09/22/2022 14:20:39 Gynecologic examination 98992660 Z01.419 Screening for malignant neoplasm of cervix 157497624 Z12.4 Contracept ion education 504467669 Z30.09 Contracept román counseling : Discussed options including OCPs, NuvaRing, Nexplanon, hormonal and copper IUDs. Discussed risks, efficacy, noncontrac eptive benefits, and side effects of each option, including risk of VTE with hormonal contracept ion and uterine perforatio n, expulsion, infection with IUD. Depression screening 171 384499 Z13.31 Screening for disorder 765341415 Z11.3 N89.9 Venereal d isease screening 490920342 Z11.3 Health Concerns Section Related Observation LastModified by Organization Detai ls LastModified Time None Recorded Concern Status LastModified by Organization Details LastModified Time None Recorded Advance Directives Directive None Recorded Payers Encounter Date Sequence Insurance Name Policy Number Policy Lazar Covered Member ID Lazar Member ID Guarantor Name 09/21/2022 1 [facility] Frank Harris [id number] Frank Harris Notes Date Note Type Note Provider Name and Address Organization Details Recorded Time 09/21/2022 text/html Annual GYNReport ed bypatient.Menstrua l cycle:Normal menses Urinary symptoms:No hematuria; No incontinence Vulva:No genital lesion Vagina:Normal vaginal discharge Breast:No breast pain; No breast lump; No nipple discharge Sexual complaints:No sexual complaints; No pain during intercourse; Normal libido Menopausal Symptoms:No menopausal symptoms; Normal vaginal lubrication Psychological symptoms:No depression; No anxiety; No PMDD Pt is here today for annual and pap. Last pap was 2019. Pt does want STD screening and blood work. Pt states she frequently gets BV and yeast infections and would like to know why does that happen so often for her. FLY RODRÍGUEZ, [facility]- [address] [facility], [place], [address], [facility] 09/21/2022 17:01:31 OBGyn Episode No OBEpisode recorded.
--- OUTSIDE RECORDS SUMMARY | 2024-08-28 08:05 | XMS_ITS | Data Portability ---
Author Organization [facility] Address [address] [place] [address] Assessment Encounter Date Assessment Date Assessment LastModified by Organization Details LastModified Time 09/30/2023 09/30/2023 Annual gynecological exam performed. Patient will come back in a year unless there are new symptoms. Take Calcium with Vitamin D 1200mg daily if not receiving in daily diet. It is strongly advised to have an annual flu shot and up can obtain at most pharmacies. If you have not had a TDap shot in the last 10 years you should obtain one as well. Discussed with patient & provided with information regarding Gardisil vaccine to prevent the 4 strains for HPV that cause cervical cancer if under age 26. Encourage safe sexual practices, to use condoms and limit partners if not already in a monogamous relationship. Do monthly self breast exams. Have mammogram yearly or every other year depending on family history. BRCA testing is now available for patients with strong genetic history of female cancer. If interested contact the office. Engage in daily exercise of low impact aerobic exercise 45-60 minutes 4-5 times weekly. Avoid tobacco and illicit drugs as well as using moderation with alcohol intake less than 1-2 8 oz beverages daily. This lifestyle behavior pattern will lead to less health conditions and longer life span. If BMI greater than 25 weight watchers or dietary consult advised. Patient received above instructions, and questions have been answered. If you have any questions please call or respond to this email. Patient was made aware of the patient portal and may obtain a paper copy of today's plan if desired. [email or web address] Not available 09/30/2023 16:55:31 Plan of Treatment Reminders Order Date Submit Date Provider Last Modified By Organization Details Last Modified Time Details Appointments None recorded. Lab urinalysis, dipstick 2023 024 [email or web address] [address], [address], [place], [address], 4 11:14:18 unlisted lab - women's health swab, BRICE 2023 024 [facility] (Lab), [address] [place], [address], 4 23:16:41 culture, urine 2023 [facility] (Lab), [address] [place], [address], 4 23:16:42 urinalysis, dipstick 2023 024 [email or web address] [address], [address], [place], [address], 4 10:23:51 Referral None recorded. Procedures None recorded. Surgeries None recorded. Imaging non-stress test 2022 023 [email or web address] [address], [address], [place], [address], 3 14:04:31 Medication Orders metronidazo le 0.75 % (37.5 mg/5 gram) vaginal gel 2023 024 [facility], [address] [place], [address], 4 10:57:14 Macrobid 100 mg capsule [address] [facility], [address] [place], [address], 4 10:22:06 Pyridium 100 mg tablet [address] [facility], [address] [facility], [place], [address], 4 10:22:08 Patient TargetsNo targets recorded. Patient InstructionsNo instructions recorded. Reason for Referral None Reported. Results Created Date Observation Date Name Description Value Unit Range Abnormal Flag Note LastModifiedBy Organization Detail LastModifiedTime 05/16/2005/16/2023 CULTU RE: GROUP B STREP SCREE N result report SEE RESULT S BELOW Test: Cultu re: Group B Strep Scree n - Vagin al/Re ctal Speci men Sourc e: Vagin a/Rec nancy Speci men Type: Vagin al/Re ctal Speci men Date: 05/16 5:14 PM Resul t Date: 05/19 12:44 PM Resul t Statu s: Final resul t Abnor mal: No Resul ting Lab: [facility] [address] [facility] [address] Tel: CULTU RE ----- ----- ----- --- No Group B strep isola vince at 2 days (miguelito ctive broth enhan cemen t) Not Available [facility] (Lab) [address] [facility], [place], [address], 05/19/2023 13:47:51 10/15/19 24 10/15/2023 urina lysis , dipst ick Leukocytes + Not Available Maria Luz vilchis [address], [place], [address], 10/15/2023 10:23:17 10/15/19 24 10/15/2023 urina lysis , dipst ick Nitrite NEG Not Available [address], [place], [address], 10/15/2023 10:23:17 10/15/19 24 10/15/2023 urina lysis , dipst ick Urobilinogen NEG Not Available Munir singh [address], [place], [address], 10/15/2023 10:23:17 10/15/19 24 10/15/2023 urina lysis , dipst ick Protein TRACE Not Available [address], [place], [address], 10/15/2023 10:23:17 10/15/19 24 10/15/2023 urina lysis , dipst ick pH 7 Not Available [address], [place], [address], 10/15/2023 10:23:17 10/15/19 24 10/15/2023 urina lysis , dipst ick Blood + Not Available [address], [place], [address], 10/15/2023 10:23:17 10/15/19 24 10/15/2023 urina lysis , dipst ick Specific [place] [address] [facility] [address], [place], [address], 10/15/2023 10:23:17 10/15/19 24 10/15/2023 urina lysis , dipst ick Ketone NEGT Not Available [address], [place], [address], 10/15/2023 10:23:17 10/15/19 24 10/15/2023 urina lysis , dipst ick Bilirubin NEG Not Available [facility] elina [address], [place], [address], 10/15/2023 10:23:17 10/15/19 24 10/15/2023 urina lysis , dipst ick Glucose NEG Not Available [address], [place], [address], 10/15/2023 10:23:17 10/15/19 24 10/15/2023 urina lysis , dipst ick Appearance CLOUDY Not Available Maria Luz vilchis [address], [place], [address], 10/15/2023 10:23:17 10/15/19 24 10/15/2023 urina lysis , dipst ick Color YELLOW Not Available [address], [place], [address], 10/15/2023 10:23:17 12/15/19 24 12/15/2023 BHCG, QUANT ITATI VE B-HCG <0.2 mIU/m L This assay was perfo rmed using [employer] ratio n reage nts and test kits. Value s obtai linus with other assay metho ds or kits canno t be used inter avila eably . Refer ence Range s: Non-p regna nt, preme nopau trey women : 0.0-5 .3 mIU/m L Postm enopa usal women : 0.0-7 .0 mIU/m L Jami l Pregn senthil: Gesta rome l Age bHCG Conc. - mIU/m L 3 Weeks 5.8 - 71.7 4 Weeks 9.5 - 750 5 Weeks 217-7 138 6 Weeks 158 - 31,79 5 7 Weeks 3,697 - 162,5 63 8 Weeks 32,06 5 - 149,5 71 9 Weeks 63,80 3 - 151,4 10 10 Weeks 46,50 9 - 186,9 77 12 Weeks 27,83 2 - 210,6 12 14 Weeks 13,95 0 - 62,53 0 15 Weeks 12,03 9 - 70,97 1 16 Weeks 9,040 - 56,45 1 17 Weeks 8,175 - 55,86 8 18 Weeks 8,099 - 58,17 6 Not Available [facility] (Lab) [address], [place], [address], 12/16/2023 06:18:10 05/08/20 24 05/08/2024 WOMEN 'S HEALT H SWAB, BRICE luna species, tma Negati ve negati ve Not Available [facility] (Lab) [address], [place], [address], 05/09/2024 23:16:41 05/08/20 24 05/08/2024 WOMEN 'S HEALT H SWAB, BRICE luna glabrata, tma Negati ve negati ve Not Available [facility] (Lab) [address] [facility], [place], [address], 05/09/2024 23:16:41 05/08/20 24 05/08/2024 WOMEN 'S HEALT H SWAB, BRICE trichomonas vaginalis, tma Negati ve negati ve This assay tests for and diffe renti ates dwaynewe en Elizabeth da glabr azeem, the Elizabeth da speci es group (C. albic ans, C. tropi calis , C. parap dayana is, C. dubli trevor is), and Trich omona s vagin sotero by Trans cript ion-M ediat ed Ampli ficat ion (TMA) . Not Available [facility] (Lab) [address] [facility], [place], [address], 05/09/2024 23:16:41 05/08/20 24 05/08/2024 WOMEN 'S HEALT H SWAB, BRICE bacterial vaginosis (bv), tma Positi ve negati ve abnormal This test detec ts ribos omal RNA from bacte kulwinder assoc iated with bacte rial vagin osis (BV), inclu ding Lacto bacil madison (L. gasse ri, L. crisp atus and L. jense aron), Gardn erell a vagin sotero, and Atopo bium vagin ae by Trans cript ion-M ediat ed Ampli ficat ion (TMA) . A singl e quali tativ e resul t is repor vince based on instr ument softw are to deter mine BV posit román or negat román statu s. Not Available [facility] (Lab) [address] [facility], [place], [address], 05/09/2024 23:16:41 05/08/20 24 05/08/2024 CULTU RE: URINE result report SEE RESULT S BELOW Test: Cultu re: Urine Speci men Sourc e: Urine - Clean Catch Speci men Type: Urine Speci men Date: 05/08 1017 Resul t Date: 05/09 2212 Resul t Statu s: Final resul t Abnor mal: No Resul ting Lab: [facility] [address] [facility] [address] Tel: CULTU RE ----- ----- ----- --- No growt h in 1 day (dete ction level of 10,00 0 colon ies / ml.) Not Available [facility] (Lab) [address], [place], [address], 05/09/2024 23:16:42 05/08/20 24 05/08/2024 urina lysis , dipst ick Leukocytes - Not Available [facility] [address], [place], [address], 05/08/2024 11:11:50 05/08/20 24 05/08/2024 urina lysis , dipst ick Nitrite - Not Available [address], [place], [address], 05/08/2024 11:11:50 05/08/20 24 05/08/2024 urina lysis , dipst ick Urobilinogen - Not Available [facility] samantha [address], [place], [address], 05/08/2024 11:11:50 05/08/20 24 05/08/2024 urina lysis , dipst ick Protein trace Not Available [address], [place], [address], 05/08/2024 11:11:50 05/08/20 24 05/08/2024 urina lysis , dipst ick pH 5 Not Available [address], [place], [address], 05/08/2024 11:11:50 05/08/20 24 05/08/2024 urina lysis , dipst ick Blood trace Not Available [address], [place], [address], 05/08/2024 11:11:50 05/08/20 24 05/08/2024 urina lysis , dipst ick Specific [place] 1.020 Not Available [facility] aman [address], [place], [address], 05/08/2024 11:11:50 05/08/2005/08/2024 urina lysis , dipst ick Ketone - Not Available [address], [place], [address], 05/08/2024 11:11:50 05/08/20 24 05/08/2024 urina lysis , dipst ick Bilirubin - Not Available [facility] antoine [address], [place], [address], 05/08/2024 11:11:50 05/08/20 24 05/08/2024 urina lysis , dipst ick Glucose - Not Available [address], [place], [address], 05/08/2024 11:11:50 05/08/20 24 05/08/2024 urina lysis , dipst ick Appearance clear Not Available [facility] [address], [place], [address], 05/08/2024 11:11:50 05/08/20 24 05/08/2024 urina lysis , dipst ick Color light yellow Not Available [address], [place], [address], 05/08/2024 11:11:50 04/29/2004/29/2023 non-s tress test No observ ation record ed. [email or web address] [address], [place], [address], 04/29/2023 16:31:36 04/29/2004/29/2023 US, obste tric, bioph ysica l profi le + non-s tress test No observ ation record ed. [email or web address] [address], [place], [address], 04/29/2023 17:56:17 04/29/2004/29/2023 US, doppl er, umbil ical arter y veloc imetr y No observ ation record ed. [email or web address] [address], [place], [address], 04/29/2023 17:56:08 04/29/20 23 04/29/2023 US, obste tric, bioph ysica l profi le + non-s tress test No observ ation record ed. FORTUNATO [address] [facility], [place], [address], 05/03/2023 16:55:02 05/05/20 23 05/04/2023 US, obste tric, follo w-up No observ ation record ed. [email or web address] [facility][note 2] [address] , [place], [address], 05/06/2023 10:35:41 05/06/20 23 05/06/2023 non-s tress test No observ ation record ed. [email or web address] [address], [place], [address], 05/06/2023 21:12:13 05/13/20 23 05/13/2023 non-s tress test No observ ation record ed. [email or web address] [facility] [address], [place], [address], 05/16/2023 16:21:37 05/13/20 23 05/13/2023 US, obste tric, bioph ysica l profi le No observ ation record ed. [email or web address] [facility] [address] [facility] [address], [place], [address], 05/16/2023 10:14:24 05/16/20 23 05/16/2023 non-s tress test No observ ation record ed. [address], [place], [address], 05/16/2023 17:09:39 05/16/20 non-s tress test No observ ation record ed. [email or web address] Not Available 05/16 17:13:32 05/27/20 23 05/27/2023 non-s tress test No observ ation record ed. [address], [place], [address], 05/27/2023 14:57:42 05/27/20 23 05/27/2023 US, obste tric, follo w-up No observ ation record ed. [email or web address] [address], [place], [address], 05/27/2023 16:15:00 05/27/20 23 05/27/2023 US, obste tric, follo w-up No observ ation record ed. [facility] [address], [place], [address], 05/27/2023 18:36:10 05/27/20 23 05/27/2023 US, obste tric, bioph ysica l profi le + non-s tress test No observ ation record ed. [facility] [address], [place], [address], 05/27/2023 18:36:20 Result Notes None recorded. Problems Name Problem SNOMED Code Status Onset Date Resolution Date Notes Provider Name and Address Organization Details Recorded Time 37482219 Completed 202206/06/2023 Mainor Albrecht [facility], [facility] 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 3 16:56:25 Spinal muscular atrophy 6029233 Completed carrier - 2 copies, SNP present [facility] 3 16:56:25 Alpha thalassem ia 43128445 Completed silent carrier [facility] 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 3 16:56:25 Placenta circumval shital 3994127 Completed serial growth [facility] 3 16:56:25 Problem Notes None recorded. Procedures Surgical History Date Name Laterality Status Provider Name and Address Organization Details Recorded Time 09/30/2023 Date of Last Pap Smear completed Niecy Ryan [facility] 09/30/2023 16:45:17 Imaging Results Imaging Date Name Status LastModified by [facility] Details LastModified Time 04/29/2023 non-stress test completed [email or web address] [facility], [place], [address], 04/29/2023 16:31:36 04/29/2023 US, obstetric, biophysical profile + non-stress test completed [email or web address] [facility] [address], [place], [address], 04/29/2023 17:56:17 04/29/2023 US, doppler, umbilical artery velocimetry completed [email or web address] [address], [place], [address], 04/29/2023 17:56:08 04/29/2023 US, obstetric, biophysical profile + non-stress test completed FORTUNATO [address], [place], [address], 05/03/2023 16:55:02 05/04/2023 US, obstetric, follow-up completed [address], [place], [address], 05/06/2023 10:35:41 05/06/2023 non-stress test completed [address], [place], [address], 05/06/2023 21:12:13 05/13/2023 non-stress test completed [address] [address], [place], [address], 05/16/2023 16:21:37 05/13/2023 US, obstetric, biophysical profile completed [address], [address], 05/16/2023 10:14:24 05/16/2023 non-stress test completed [address], [place], [address], 05/16/2023 17:09:39 05/16/2023 non-stress test completed [place] [address] Informati on not available 05/16/2023 17:13:32 05/27/2023 [email or web address] [place] [address] [address], [place], [address], 05/27/2023 14:57:42 05/27/2023 US, obstetric, follow-up completed [email or web address] [address], [place], [address], 05/27/2023 16:15:00 05/27/2023 US, obstetric, follow-up completed [facility] [address], [place], [address], 05/27/2023 18:36:10 05/27/2023 US, obstetric, biophysical profile + non-stress test completed [facility] [address], [place], [address], 05/27/2023 18:36:20 Procedure Notes None recorded. Medical Equipment None Reported. Allergies No known drug allergies Medications Name Sig Start Date Stop Date Status Note LastModified by Organization Details LastModified Time fluconazole 150 mg tablet TAKE 1 TABLET BY MOUTH ONCE DAILY DIRECTED FOR 1 DAY 03/25 completed Not Available Not Available Not Available hydrocodone 5 mg-acetamin ophen 325 mg tablet TAKE 1 TABLET BY MOUTH EVERY 4 TO 6 HOURS NEEDED FOR PAIN 11/12 completed Not Available Not Available Not Available fluconazole 200 mg tablet 05/08 completed Not Available Not Available Not Available metronidazo le 0.75 % (37.5 mg/5 gram) vaginal gel Insert 1 applicato rful every day by vaginal route for 5 days. 2023 active Not Available Not Available Not Avai lable clotrimazol e 1 % vaginal cream INSERT 1 APPLICATO RFUL VAGINALLY NIGHTLY FOR 7 DAYS 04/22 completed Not Available Not Available Not Available metronidazo le 500 mg tablet TAKE 1 TABLET BY MOUTH EVERY 12 HOURS FOR 7 DAYS 05/08 completed Not Available Not Available Not Available nystatin-tr iamcinolone 100,000 unit/gram-0 .1 % topical ointment APPLY OINTMENT TOPICALLY TO AFFECTED AREA TWICE DAILY 03/25 completed Not Available Not Available Not Available amoxicillin 875 mg tablet TAKE 1 TABLET BY MOUTH TWICE DAILY UNTIL GONE 11/12 completed Not Available Not Available Not Available phenazopyri dine 100 mg tablet 05/08 completed Not Available Not Available Not Available cephalexin 500 mg tablet TAKE 1 TABLET BY MOUTH EVERY 12 HOURS FOR 7 DAYS 05/08 completed Not Available Not Available Not Available ergocalcife rol (vitamin D2) 1,250 mcg (50,000 unit) capsule TAKE 1 CAPSULE BY MOUTH ONCE A WEEK 11/26 completed Not Available Not Available Not Available ibuprofen 600 mg tablet TAKE 1 TABLET BY MOUTH EVERY 6 HOURS NEEDED FOR CRAMPS 09/29 completed Not Available Not Available Not Available amoxicillin 875 mg-potassiu m clavulanate 125 mg tablet 05/08 completed Not Available Not Available Not Available nitrofurant oin monohydrate /macrocryst als 100 mg capsule 05/08 completed Not Available Not Available Not Available Vitamin 09/29 completed Not Available Not Available Not Available Vitals Date Recorded Body height Body mass index (BMI) Body weight Systolic blood pressure Diastolic blood pressure Provider Name and Address Organization Details Last Updated DateTime 05/27/2023 166.37 cm 36.4 kg/m2 230985.5 0614 g 124 mm[Hg] 84 mm[Hg] Niecy [facility] 3 15:58:03 Date Recorded Body height Body mass index (BMI) Body weight Systolic blood pressure Diastolic blood pressure Provider Name and Address Organization Details Last Updated DateTime 07/08/2023 166.37 cm 34.3 kg/m2 68351.81 g 122 mm[Hg] 81 mm[Hg] [facility] 4 15:05:57 Date Recorded Body height Body mass index (BMI) Body weight Systolic blood pressure Diastolic blood pressure Provider Name and Address Organization Details Last Updated DateTime 09/30/2023 166.37 cm 35.4 kg/m2 33549.95 g 126 mm[Hg] 80 mm[Hg] [facility] 4 16:44:56 Date Recorded Body height Body mass index (BMI) Body weight Systolic blood pressure Diastolic blood pressure Provider Name and Address Organization Details Last Updated DateTime 10/15/2023 166.37 cm 36 kg/m2 96336.88 g 131 mm[Hg] 80 mm[Hg] Corinne Ramos [facility] 4 10:14:44 Date Recorded Body height Body mass index (BMI) Body weight Systolic blood pressure Diastolic blood pressure Provider Name and Address Organization Details Last Updated DateTime 05/08/2024 166.37 cm 36.7 kg/m2 318417.6 9 g 123 mm[Hg] 79 mm[Hg] Jessica Rodriguez [facility] 4 10:21:56 Social History Question Answer Notes LastModified by Organizat ion Details LastModified Time Tobacco Smoking Status Former Smoker Niecy hughes, [facility] 11/12/2022 16:09:50 What Is Your Level Of Alcohol Consumption? None [email or web address] Information not available 11/12/2022 If You Are , What Was Your Level Of Alcohol Consumption Prior To ? Occasional Information not available 11/12/2022 Are You Blind Or Do You Have Difficulty Seeing? No Information not available 11/12/2022 What Is Your Level Of Caffeine Consumption? None [email or web address] Information not available 11/12/2022 In The 14 Days Before Symptom Onset, Have You Had Close Contact With A Laboratory-confir med COVID-19 While That Case Was Ill? No [email or web address] Information not available 11/12/2022 In The 14 Days Before Symptom Onset, Have You Had Close Contact With A Person Who Is Under Investigation For COVID-19 While That Person Was Ill? No [email or web address] Information not available 11/12/2022 Have You Been To An Area Known To Be High Risk For COVID-19? No [email or web address] Information not available 11/12/2022 Are You Deaf Or Do You Have Serious Difficulty Hearing? No [email or web address] Information not available 11/12/2022 What Type Of Diet Are You Following? REGULAR [email or web address] Information not available 11/12/2022 What Is The Highest Grade Or Level Of School You Have Completed Or The Highest Degree You Have Received? [id number] [email or web address] Information not available 11/12/2022 What Is Your Occupation? [employer] [email or web address] Information not available 11/12/2022 Are There Any Guns Present In Your Home? No [email or web address] Information not available 11/12/2022 Do You Use Protection During Sex? No [email or web address] Information not available 11/12/2022 Do You Use Your Seat Belt Or Car Seat Routinely? Yes [email or web address] Information not available 11/12/2022 Do You Have Smoke And Carbon Monoxide Detectors In Your Home? Yes [email or web address] Information not available 11/12/2022 How Much Tobacco Do You Smoke? No [email or web address] Information not available 11/12/2022 Do You Feel Stressed (tense, Restless, Nervous, Or Anxious, Or Unable To Sleep At Night)? PS2415-1 [email or web address] Information not available 11/12/2022 Do You Use Any Illicit Or Recreational Drugs? No [email or web address] Information not available 11/12/2022 Do You Use Sunscreen Routinely? No [email or web address] Information not available 11/12/2022 Has Tobacco Cessation Counseling Been Provided? No [email or web address] Information not available 11/12/2022 Have You Used IV Drugs? No [email or web address] Information not available 11/12/2022 Do You Or Have You Ever Used Any Other Forms Of Tobacco Or Nicotine? No [email or web address] Information not available 11/12/2022 Sex: Unknown Functional Status Question Answer Note LastModified by Organizat ion Details LastModified Time Do you have difficulty walking or climbing stairs? No [email or web address] Information not available 11/12/2022 Are you able to walk? [email or web address] Information not available 11/12/2022 Are you able to care for yourself? Yes [email or web address] Information not available 11/12/2022 Do you have difficulty dressing or bathing? No [email or web address] Information not available 11/12/2022 What is your exercise level? Moderate [email or web address] Information not available 11/12/2022 Mental Status None recorded. Family History Relationship Description Onset Age of this Age Resolved Age Notes LastModified by Organization Details LastModified Time Father Diabetes mellitus [email or web address] Not available 11/12 16:09:19 Father Hypertensive disorder [email or web address] Not available 11/12 16:09:27 Mother Hypertensive disorder [email or web address] Not available 11/12 16:09:32 Medical History Condition Response Allergies (Food, seasonal, environmental ) N Other N Breast Cancer N Drug/Latex Allergies/Reactions N Blood Transfusion N Dermatologic Disorders N Lung Disease N Defects or Inherited Disease N Breast Problem N Gestational Diabetes N Hematologic disorders N Anesthesia Complications N History of STI Y Deep Vein Thrombosis N Polycystic ovary syndrome N Anxiety Disorder N Autoimmune disease N Arthritis N Infertility N Polyps N Acid Reflux (GERD) N History of abnormal pap N Cancer N Stroke N Varicosities N Neurologic/Epilepsy N Endometriosis N High Cholesterol N Headaches N Fibromyalgia N Kidney Disease N Heart Problems N Kidney or Bladder Problems N Thyroid Problems N GI Problems N Eating Disorder N Anemia N Art (IVF or FET) N Psychiatric Illness N Ovarian Cancer N Diabetes N Pulmonary (TB, Asthma) N Hepatitis/Liver Disease N No Past Medical History Y Eczema N Urinary Tract Infection N Abuse/Domestic Violence N Asthma N Trauma/Violence N Depression/ depression N Heart Disease N Pre-Eclampsia N Hypertension N Osteoporosis N Thrombophilias N Gynecological History Statement/Question Response Flow Heavy Date of Last Mammogram Date of LMP 04/23/2024 On BCP's at Conception? N N Was last menstrual period normal Y STIs/STDs Y HPV Vaccine N Duration of Flow (days) 5 Current Control Method None Are cycles usually normal Y Frequency of Cycle (Q days) 28 Sexually Active? Y Menses Monthly Y Date of DEXA bone scan Age of first menstrual cycle 12 Date of Last Pap Smear 09/30/2023 Sexual Problems? N LMP Definite N Obstetrics History GPAL:G 2 P 1 0 1 1 Type Value Full Term 1 Spontaneous 1 Living 1 Total 2 Past Encounters Encounter ID Performer Location Encounter Start Date Encounter Closed Date Diagnosis/Indication Diagnosis SNOMED-CT Code Diagnosis ICD10 Code Diagnosis Note [id number] Maite Mcdowell [facility] [address] [address] 11/12/2022 14:42:11 11/12/2022 15:57:33 [id number] Cheryl Barksdale CNM [facility] [address] [address] 11/12/2022 14:43:10 11/12/2022 16:52:11 Amenorrhea 40088790 N91.2 reviewed office, precaution s folder, education done f/u new ob and first lookdental letter givenrec request sent Venereal d isease screening 683203009 Z11.3 [id number] Maite Mcdowell [facility] [address],[place] [address] 11/26/2022 11:48:52 11/26/2022 13:54:50 Uncertain viability of 682531505 O36.80X0 Z3A.11 [id number] Vini Shelton MD [facility] [address],[place] [address] 11/26/2022 13:03:45 11/26/2022 13:42:04 Routine care 310792381 Z34.01 [id number] Cheryl Barksdale [facility] [address],[place] [address] 12/08/2022 17:44:43 12/09/2022 09:35:45 Vaginitis 57682253 N76.0 culture sent monitor sxs, f/u ob visit [id number] Cheryl Barksdale [facility] [address],[place] [address] 12/24/2022 14:49:45 12/24/2022 15:10:52 Routine care 207016194 Z34.92 [id number] [facility] [address],[place] [address] 12/24/2022 14:50:13 12/24/2022 16:17:18 [id number] [facility] [address],[place] [address] 01/21/2023 13:58:02 01/21/2023 15:15:24 screening for malformation 189709831 Z36.3 [id number] Cheryl Barksdale [facility] [address],[place] [address] 01/21/2023 13:58:23 01/25/2023 10:27:09 Vaginitis 90153463 N76.0 culture sent monitor sxs, f/u ob visit Routine an tenatal care 555436172 Z34.92 [id number] Maite Vermilion [facility] [address],[place] [address] 02/16/2023 16:52:14 02/17/2023 12:23:59 screening 676998780 Z36.2 Z3A.23 [id number] [facility] [address],[place] [address] 02/16/2023 16:52:36 02/17/2023 12:25:11 Routine care 272486619 Z34.92 [id number] Tami Plasencia [facility] [address],[place] [address] 03/25/2023 11:59:52 03/25/2023 13:30:59 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 Z3A.28 [id number] DOREEN OROPEZA MD [facility] [address],[place] [address] 03/25/2023 12:01:37 03/25/2023 14:49:30 Routine care 867208107 Z34.93 [id number] Amparo Morris [facility] [address],[place] [address] 04/21/2023 09:25:41 04/21/2023 10:32:44 Small for gestational age fetus 662957391 O36.5930 O43.113 Z3A.32 [id number] Corinne Ramos [facility] [address],[place] [address] 04/21/2023 10:41:51 04/21/2023 11:12:39 Small for gestational age fetus 714216235 O36.5930 O43.113 Z3A.32 [id number] Cheryl Barksdale CNM [facility] [address],[place] [address] 04/22/2023 15:00:49 04/22/2023 15:26:46 Routine care 913034453 Z34.92 [id number] DOREEN OROPEZA MD [facility] [address],[place] [address] 04/29/2023 15:57:42 05/01/2023 12:33:26 Gestation period, 33 weeks 14452916 Z3A.33 grow th restriction 45661348 O36.5999 Placenta circumvallata 6608687 O43.113 Z3A.28 [id number] [facility] [address],[place] [address] 04/29/2023 15:58:08 04/29/2023 16:33:41 growth restriction 51071264 O36.5999 [id number] Tami Plasencia [facility] [address],[place] [address] 04/29/2023 15:58:29 05/01/2023 12:35:43 Small for gestational age fetus 567922052 O36.5930 Z3A.33 [id number] [facility] [address],[place] [address] 05/06/2023 15:56:58 05/06/2023 16:51:49 Small for gestational age fetus 173133242 O36.5930 O43.113 Z3A.32 [id number] Cheryl Barksdale [facility] [address],[place] [address] 05/06/2023 15:57:22 05/06/2023 16:59:16 Routine care 205990690 Z34.92 [id number] DOREEN OROPEZA MD [facility] [address],[place] [address] 05/16/2023 15:26:26 05/17/2023 09:48:19 Gestation period, 36 weeks 82564772 Z3A.36 grow th restriction 38926870 O36.5999 screening 2437 78984 Z36.85 [id number] [facility] [address],[place] [address] 05/16/2023 15:26:48 05/16/2023 17:11:24 Placenta circumvallata 5520415 O43.113 Z3A.28 [id number] [facility] [address],[place] [address] 05/27/2023 14:24:19 05/27/2023 14:59:30 growth restriction 10070963 O36.5999 [id number] Amparo Morris [facility] [address],[place] [address] 05/27/2023 14:24:41 05/28/2023 14:06:40 Small for gestational age fetus 746623753 O36.5930 O43.113 Z3A.37 [id number] Cheryl Barksdale [facility] [address],[place] [address] 05/27/2023 14:25:03 05/27/2023 16:49:08 Routine care 218853259 Z34.92 [id number] Niecy Ryan [facility] [address],[place] [address] 07/08/2023 14:57:18 07/08/2023 15:25:49 care 420845253 Z39.2 normal pp exam f/u october wwe [id number] Cheryl Barksdale [facility] [address],[place] [address] 09/30/2023 16:11:46 09/30/2023 16:58:13 Gynecologic examination 54515496 Z01.419 [id number] Salome Dietrich [facility] [address],[place] [address] 10/15/2023 10:07:42 10/15/2023 10:25:21 Urinary symptoms 382517923 R39.9 Suspect UTI on urine dip todayUrine culture sentCounse led on medication R/B's, Most common side effects, & use. All questions were answered to patient satisfacti on.Decline d STD Time spent in visit is a total of 18 mins with at least 50% of visit consisting of counseling and review of plan of care. [id number] Jessica Rodriguez [facility] [address],[place] [address] 05/08/2024 10:14:00 05/08/2024 10:59:43 Irregular periods 01333985 N92.6 Discussed treatment options for irregular menstrual bleeding, such as regulating cycles with hormonal control. Patient declines this option as she may want to try to conceive in the next year.Linsey montgomery will follow-up if bleeding irregulari ty persists. Discussed that OCPs can be prescribed to take BID x 10 days to help stop constant bleeding/s potting if it returns.Di scussed that if bleeding irregulari ty continues, labs and pelvic ultrasound may be recommende d as well.Linsey montgomery verbalized understand ing. Vaginal discharge 373445 006 N89.8 Discussed empirical treatment with metronidaz ole vaginal gel for suspected BV based on reported symptoms and physical exam findings.D iscussed vulvar care guidelines in addition to laundry/sk in irritants to avoid.Moise mmended boric acid capsules - insert one capsule vaginally at H.S. after period, intercours e, and/or with symptoms.B V/yeast/tr ich panel sent. Health Concerns Section Related Observation LastModified by Organization Detai ls LastModified Time None Recorded Concern Status LastModified by Organization Details LastModified Time None Recorded Advance Directives Directive None Recorded Payers Encounter Date Sequence Insurance Name Policy Number Policy Lazar Covered Member ID Lazar Member ID Guarantor Name 05/27/2023 2 [facility] [id number] Frank Harris [id number] Frank Harris 05/27/2023 1 [facility] [id number] Frank Harris [id number] Frank Harris 07/08/2023 2 [facility] [id number] Frank Harris [id number] Frank Harris 07/08/2023 1 [id number] Frank Harris [id number] Frank Harris 09/30/2023 [id number] Frank Harris [id number] Frank Harris 10/15/2023 1 [facility] [employer] (PPO) [id number] Frank Harris [id number] Frank Harris 05/08/2024 1 [facility] [id number] Frank Steven [id number] Gloriamonica Steven Notes Date Note Type Note Provider Name and Address Organization Details Recorded Time 4 text/html VisitReported bypatient.Quality: Context:complications of : IUGR; complications of labor: ; complications: hemorrhage; feeding choice: breast and bottle; good support from partner/family; resumed menstrual bleeding yes; SALONI after delivery Associated Symptoms:no abnormal bleeding; no vaginal discharge; no pelvic pain; laceration well healed; no constipation; no fecal incontinence; no dysuria; no urinary incontinence; no fever; no problems; no mastitis; normal mood Contraception Plan:declines contraceptionNotes:doi ng well baby now 10lbs! declines bcm Niecy hughes, [facility] 07/08/2023 16:52:49 4 text/html Annual GYNReported bypatient.History:no gynecologic complaints Menstrual cycle:cycles a little irregular, not more than once a month, not skipping more than a month Urinary symptoms:No hematuria Breast:No breast pain; No breast lump; No nipple discharge Sexual complaints:No sexual complaints; No pain during intercourse; Normal libido Menopausal Symptoms:No menopausal symptoms; Normal vaginal lubrication Psychological symptoms:No depression; No anxiety; No PMDD Preventive measures:Encourage self breast examination; Encourage regular exercise; Encourage no tobacco useNotes:declines any testing, bcm doing well! baby getting big! Cheryl Barksdale, ADÁN [address], [place], [address], [facility] 09/30/2023 16:55:49 4 text/html Here today for urinary frequency, urgency, dysuria. Neg pain of abd/pelvis/flankNeg GI sx'sNeg N/V/F/C/DNeg Vag d/c, odor, irritation, itchingMonogamous Salome Dietrich, [facility] [address], [place], [address], [facility] 10/15/2023 10:24:27 4 text/html Patient here to discuss irregular bleeding that has occurred since having miscarriage in November 2023. Patient states that she was diagnosed with a chemical and had a bHCG lab drawn that showed that her bHCG returned to normal.Patient states that she would have regular periods q28 days that lasted 5 days, and then would have intermittent spotting until next period.Patient denies dizziness, pelvic pain, fatigue, or syncope.Patient states that she had a normal period this month and has not had any spotting.Patient states that she does not want to be on hormonal control. Patient also reports intermittent BV infections d/t the frequent bleeding. Reports vaginal discharge and odor. Jessica Rodriguez [facility], [facility] 05/08/2024 11:14:51 OBGyn Episode Ob Episode Information Episode Created Date Number of Fetuses Patient Bloodtype Patient rh Status Prepregnancy Weight lbs Domestic Partner Domestic Partner Phone Father Name Medication Care Manager Status 11/27/19 23 1 A Positive 206 CLOSED Fetus Data First Name Last Name Admitted to NICU Weight (g) Sex Living Outcome Pediatric Complications Fetus ID Race Codes Race Delivery Type Armari 2891.64 9 M true Full Term [email or web address] Vaginal Delivery Problems Problem Notes PER 05/20 [facility] NOTE - To del er between 38w0d & 39w0d!! Induction scheduled for 05/31 @ 1700. Pt informed. 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 Patric Calculation Initial Patric Date Initial Exam Date Initial Exam Provider Initial Ultrasound Date Last Menstrual Period Date Ultra Sound Weeks Gestation 06/12/2023 11/26/2022 11/12/2022 09/05/2022 9 Eighteen To Twenty Week Patric Update Ultra Sound Date Fundal Height At Umbil Quickening Date Ultra Sound Latest Weeks Gestation Final Patric Confirmed By Final Patric Confirmed Date Final Patric Date Ultra Sound Latest Days Gestation 0 [email or web address] 11/26/2022 06/12/20 23 0 Pre- Flowsheet Flowsheet Date 11/26/2022 Jsoeph Score Blood Edema Fundus Height Fundus Units Glucose Ketones Leukocytes Nitrite Labor Signs Protein Cervic Dilation Cervic Effacement Cervic Station Type Weight in lbs Pre/Post Dialysis Refused BP Diastolic BP Location Tested BP Systolic BP Type Fetus Heart Rate Present Fetus Movement Comments Flowsheet Date 11/26/2022 Joseph Score Blood Edema Fundus Height Fundus Units Glucose Ketones Leukocytes Nitrite Labor Signs Protein Cervic Dilation Cervic Effacement Cervic Station 11 Type Weight in lbs Pre/Post Dialysis Refused Weight 204.832920269815 BP Diastolic BP Location Tested BP Systolic BP Type 77 R arm 113 sitting Fetus Heart Rate Present A 145 Fetus Movement Comments 27-year-old 1 at 11 weeks gestation who presents for initial care. She has no complaints today other than decreased energy. She has no remarkable medical, surgical, obstetric history. We talked about care in detail. She is vaccinated for COVID. She will begin routine care. Flowsheet Date 12/08/2022 Joseph Score Blood Edema Fundus Height Fundus Units Glucose Ketones Leukocytes Nitrite Labor Signs Protein Cervic Dilation Cervic Effacement Cervic Station neg none none trace Type Weight in lbs Pre/Post Dialysis Refused Weight 206.027953973194 BP Diastolic BP Location Tested BP Systolic BP Type 71 112 Fetus Heart Rate Present Fetus Movement A No Comments patient is having some vagin al discharge. Flowsheet Date 12/24/2022 Joseph Score Blood Edema Fundus Height Fundus Units Glucose Ketones Leukocytes Nitrite Labor Signs Protein Cervic Dilation Cervic Effacement Cervic Station neg none none trace Type Weight in lbs Pre/Post Dialysis Refused Weight 205.813299895648 BP Diastolic BP Location Tested BP Systolic BP Type 79 128 Fetus Heart Rate Present A 152 Present Fetus Movement A No Comments patient is having some cramp ing and discharge. swab last time negative, reviewed precautions gender ID today, samples of vitamins given, f/u 4 weeks with anatomy scan Flowsheet Date 12/24/2022 Joseph Score Blood Edema Fundus Height Fundus Units Glucose Ketones Leukocytes Nitrite Labor Signs Protein Cervic Dilation Cervic Effacement Cervic Station Type Weight in lbs Pre/Post Dialysis Refused BP Diastolic BP Location Tested BP Systolic BP Type Fetus Heart Rate Present Fetus Movement Comments Flowsheet Date 01/21/2023 Joseph Score Blood Edema Fundus Height Fundus Units Glucose Ketones Leukocytes Nitrite Labor Signs Protein Cervic Dilation Cervic Effacement Cervic Station Type Weight in lbs Pre/Post Dialysis Refused BP Diastolic BP Location Tested BP Systolic BP Type Fetus Heart Rate Present Fetus Movement Comments Flowsheet Date 01/21/2023 Joseph Score Blood Edema Fundus Height Fundus Units Glucose Ketones Leukocytes Nitrite Labor Signs Protein Cervic Dilation Cervic Effacement Cervic Station neg none none trace Type Weight in lbs Pre/Post Dialysis Refused Weight 207.256566407983 BP Diastolic BP Location Tested BP Systolic BP Type 80 121 Fetus Heart Rate Present Fetus Movement A Yes Comments patient states that has vagi nal odor. no d/c arnold or burning, metrogel to pharmacy, anatomy incomplete f/u 4 weeks precautions rveiewed Flowsheet Date 02/16/2023 Joseph Score Blood Edema Fundus Height Fundus Units Glucose Ketones Leukocytes Nitrite Labor Signs Protein Cervic Dilation Cervic Effacement Cervic Station Type Weight in lbs Pre/Post Dialysis Refused BP Diastolic BP Location Tested BP Systolic BP Type Fetus Heart Rate Present Fetus Movement Comments Flowsheet Date 02/16/2023 Joseph Score Blood Edema Fundus Height Fundus Units Glucose Ketones Leukocytes Nitrite Labor Signs Protein Cervic Dilation Cervic Effacement Cervic Station neg none none trace Type Weight in lbs Pre/Post Dialysis Refused Weight 212.27455807176 BP Diastolic BP Location Tested BP Systolic BP Type 74 122 Fetus Heart Rate Present Fetus Movement A Yes Comments patient is having some pain and vaginal itching. culture taken metrogel called out, anatomy complete efw 42% f/u 4 weeks with gct and growth, precautions and education Flowsheet Date 03/25/2023 Joseph Score Blood Edema Fundus Height Fundus Units Glucose Ketones Leukocytes Nitrite Labor Signs Protein Cervic Dilation Cervic Effacement Cervic Station Type Weight in lbs Pre/Post Dialysis Refused BP Diastolic BP Location Tested BP Systolic BP Type Fetus Heart Rate Present Fetus Movement Comments Flowsheet Date 03/25/2023 Joseph Score Blood Edema Fundus Height Fundus Units Glucose Ketones Leukocytes Nitrite Labor Signs Protein Cervic Dilation Cervic Effacement Cervic Station none none trace Type Weight in lbs Pre/Post Dialysis Refused Weight 213.653316817821 BP Diastolic BP Location Tested BP Systolic BP Type 82 124 Fetus Heart Rate Present Fetus Movement Comments Baby active. Denies ctx, LOF , VB. GCT done today. Discussed tdap/flu vaccines. RTC 2 weeks. Flowsheet Date 04/21/2023 Joseph Score Blood Edema Fundus Height Fundus Units Glucose Ketones Leukocytes Nitrite Labor Signs Protein Cervic Dilation Cervic Effacement Cervic Station Type Weight in lbs Pre/Post Dialysis Refused BP Diastolic BP Location Tested BP Systolic BP Type Fetus Heart Rate Present Fetus Movement Comments Flowsheet Date 04/21/2023 Joseph Score Blood Edema Fundus Height Fundus Units Glucose Ketones Leukocytes Nitrite Labor Signs Protein Cervic Dilation Cervic Effacement Cervic Station Type Weight in lbs Pre/Post Dialysis Refused BP Diastolic BP Location Tested BP Systolic BP Type Fetus Heart Rate Present Fetus Movement Comments Flowsheet Date 04/22/2023 Joseph Score Blood Edema Fundus Height Fundus Units Glucose Ketones Leukocytes Nitrite Labor Signs Protein Cervic Dilation Cervic Effacement Cervic Station neg trace none trace Type Weight in lbs Pre/Post Dialysis Refused Weight 218.822030286878 BP Diastolic BP Location Tested BP Systolic BP Type 79 128 Fetus Heart Rate Present A 147 Present Fetus Movement A Yes Comments patient is having some swell ing. doing well, +FM reviewed US, will have mfm US weekly testing scheduled. precautions reviewed Flowsheet Date 04/29/2023 Joseph Score Blood Edema Fundus Height Fundus Units Glucose Ketones Leukocytes Nitrite Labor Signs Protein Cervic Dilation Cervic Effacement Cervic Station 1+ Type Weight in lbs Pre/Post Dialysis Refused Weight 217.776843493148 BP Diastolic BP Location Tested BP Systolic BP Type 73 115 Fetus Heart Rate Present A 140 Fetus Movement A Yes Comments Good movement. No ctx, bleeding, LOF. Seeing MFM on Tuesday. Baby shower this ! Received Tdap. Swelling stable. BPP 03/29, UADs wnl. Flowsheet Date 04/29/2023 Joseph Score Blood Edema Fundus Height Fundus Units Glucose Ketones Leukocytes Nitrite Labor Signs Protein Cervic Dilation Cervic Effacement Cervic Station Type Weight in lbs Pre/Post Dialysis Refused BP Diastolic BP Location Tested BP Systolic BP Type Fetus Heart Rate Present Fetus Movement Comments Flowsheet Date 04/29/2023 Joseph Score Blood Edema Fundus Height Fundus Units Glucose Ketones Leukocytes Nitrite Labor Signs Protein Cervic Dilation Cervic Effacement Cervic Station Type Weight in lbs Pre/Post Dialysis Refused BP Diastolic BP Location Tested BP Systolic BP Type Fetus Heart Rate Present Fetus Movement Comments Flowsheet Date 05/06/2023 Joseph Score Blood Edema Fundus Height Fundus Units Glucose Ketones Leukocytes Nitrite Labor Signs Protein Cervic Dilation Cervic Effacement Cervic Station Type Weight in lbs Pre/Post Dialysis Refused BP Diastolic BP Location Tested BP Systolic BP Type Fetus Heart Rate Present Fetus Movement Comments Flowsheet Date 05/06/2023 Joseph Score Blood Edema Fundus Height Fundus Units Glucose Ketones Leukocytes Nitrite Labor Signs Protein Cervic Dilation Cervic Effacement Cervic Station neg trace none trace Type Weight in lbs Pre/Post Dialysis Refused Weight 219.755282323858 BP Diastolic BP Location Tested BP Systolic BP Type 75 117 Fetus Heart Rate Present Fetus Movement A Yes Comments patient is having pain, disc harge, and swelling. saw mfm and had us today, nst here reactive awaiting us report. precautions and education delivery per mfm between 37-39 weeks Flowsheet Date 05/06/2023 Joseph Score Blood Edema Fundus Height Fundus Units Glucose Ketones Leukocytes Nitrite Labor Signs Protein Cervic Dilation Cervic Effacement Cervic Station Type Weight in lbs Pre/Post Dialysis Refused BP Diastolic BP Location Tested BP Systolic BP Type Fetus Heart Rate Present Fetus Movement Comments Flowsheet Date 05/16/2023 Joseph Score Blood Edema Fundus Height Fundus Units Glucose Ketones Leukocytes Nitrite Labor Signs Protein Cervic Dilation Cervic Effacement Cervic Station Type Weight in lbs Pre/Post Dialysis Refused Weight 222.50758976377 BP Diastolic BP Location Tested BP Systolic BP Type 80 121 Fetus Heart Rate Present A 140 Fetus Movement A Yes Comments No issues, baby active. No c tx or VB. NST nonreactive, decelerations from 140 to 90 for 30 seconds. To [facility] for further monitoring. GBS collected today. Flowsheet Date 05/16/2023 Joseph Score Blood Edema Fundus Height Fundus Units Glucose Ketones Leukocytes Nitrite Labor Signs Protein Cervic Dilation Cervic Effacement Cervic Station Type Weight in lbs Pre/Post Dialysis Refused BP Diastolic BP Location Tested BP Systolic BP Type Fetus Heart Rate Present Fetus Movement Comments Flowsheet Date 05/16/2023 Joseph Score Blood Edema Fundus Height Fundus Units Glucose Ketones Leukocytes Nitrite Labor Signs Protein Cervic Dilation Cervic Effacement Cervic Station Type Weight in lbs Pre/Post Dialysis Refused BP Diastolic BP Location Tested BP Systolic BP Type Fetus Heart Rate Present Fetus Movement Comments Flowsheet Date 05/27/2023 Joseph Score Blood Edema Fundus Height Fundus Units Glucose Ketones Leukocytes Nitrite Labor Signs Protein Cervic Dilation Cervic Effacement Cervic Station Type Weight in lbs Pre/Post Dialysis Refused BP Diastolic BP Location Tested BP Systolic BP Type Fetus Heart Rate Present Fetus Movement Comments Flowsheet Date 05/27/2023 Joseph Score Blood Edema Fundus Height Fundus Units Glucose Ketones Leukocytes Nitrite Labor Signs Protein Cervic Dilation Cervic Effacement Cervic Station Type Weight in lbs Pre/Post Dialysis Refused BP Diastolic BP Location Tested BP Systolic BP Type Fetus Heart Rate Present Fetus Movement Comments Flowsheet Date 05/27/2023 Joseph Score Blood Edema Fundus Height Fundus Units Glucose Ketones Leukocytes Nitrite Labor Signs Protein Cervic Dilation Cervic Effacement Cervic Station neg none none trace 2cm 90% -2 Type Weight in lbs Pre/Post Dialysis Refused Weight 222.62579390639 BP Diastolic BP Location Tested BP Systolic BP Type 84 124 Fetus Heart Rate Present Fetus Movement A Yes Comments patient is having some contr actions. doing well IOL next week, labor precautions efw 13% ac 3%, rec by mfm 39 week delivery, s/d ratio wnl Menstrual History Last Menstrual Date Menses Monthly On Bcp Conception Prior Menses Frequency Hcg Plus Date Menarche Onset Age 0309/[birth year]22 Genetic Screening And Infection History Question Response Note Mental Retardation/Autism false Patient's Age Will Be 35 Yea rs Or Older At Estimated Date of Delivery false Thalassemia (Romanian, Czech, Mediterranean, Or Background): MCV < 80 false Neural Tube Defect (Meningom yelocele, Spina Bifida, Or Anencephaly) false Congenital Heart Defect false Down Syndrome false Triston-Sachs (eg, Muslim, Cajun, Mohawk-Turks [place] Islander) f alse Hans Disease false Sickle Cell Disease Or Trait () false Hemophilia Or Other Blood Disorders false Muscular Dystrophy false Cystic Fibrosis false [place]'s [place] false Intellectual Disability/Autism false If Yes, Was Person Tested For Fragile X? false Other Inherited Genetic Or Chromosomal Disorder false Maternal Metabolic Disorder (eg, Type 1 Diabetes , PKU) false Patient Or Baby's Father Had A Child With Defects Not Listed Above false Recurrent Loss, Or A Stillbirth false Medications (including Suppl ements, Vitamins, Herbs, OTC Drugs), Illicit/Recreational Drugs, Alcohol false If Yes, Agent(s) And Strength/Dosage false Any Other Genetic History false Live With Someone With TB Or Exposed To TB false Patient Or Partner Has History Of Genital Herpes false Rash Or Viral Illness Since Last Menstrual Perio d false History Of STD, Gonorrhea, Chlamydia, HPV, Syphi lis true Trich., Chlamy Other Infection History false History of HIV false History of Hepatitis false Prior GBS-infected child false Hemoglobinopathy Or Carrier false Other Structural Defect false Recent Travel History Outside of Country false Delivery Information Delivery Date Delivery Type Labor Anesthesia Weeks Gestation Incision Type Labor Labor Length Hrs Delivered By Post Complications Tubal Sterilization Discharge Date Comments 3 Induce d Regional-Ep idural 38.3 false Cheryl Barksdale CNM IUGR, Alpha thalassem ia, Infection by Trichomon as, Placenta circumval shital, Rubella non-immun e, Spinal muscular atrophy; cytotec and methergin e in delivery Discharge Information Feeding Method Contraceptive Method Maternal HG B and HCT Levels
--- OUTSIDE RECORDS SUMMARY | 2024-08-28 08:05 | XMS_ITS | Data Portability ---
Author Organization [facility] RYNE Ricco Ibanez Address [address] [place] [address] Care Team Providers Care Chemical Plant Manager Name Role Phone JACKIE ALLISON Primary Care Provider Assessment Encounter Date Assessment Date Assessment LastModified by Organization Details LastModified Time 11/20/2020 11/20/2020 Frank is a 25 y.o. who is c/o vaginal itching and discharge following dental work and antibiotic use. Instructed to finish antibiotics and take diflucan. Nuswab obtained. Pt. to be contacted for other positive results excluding yeast. Not available 11/20/2020 18:13:23 05/10/2022 05/10/2022 27yo F w/ no know PMH presenting for annual visit. States has h/a daily for 1hr bitemporal eyes. [email or web address] Not available 05/10/2022 21:34:06 Plan of Treatment Reminders Order Date Submit Date Provider Last Modified By Organization Details Last Modified Time Details Appointments None recorded . Lab CMP, serum or plasma 2024 025 FORTUNATO [facility], [address], [place], [address], 09:16:44 lipid panel, serum or plasma 2024 025 HUGUENOT [facility], [address], [address], [place], [address], 09:16:43 CBC w/ auto diff 2024 025 FORTUNATO [facility], [address], [address], [place], [address], 5 09:16:46 TSH + free T4, serum 2024 025 FORTUNATO [facility], [address], [address], [place], [address], 5 09:16:42 HbA1c (hemoglo bin A1c), blood 2024 025 FORTUNATO [facility], [address], [address], [place], [address], 5 09:16:45 vitamin D, 25-hydro xy, total, serum 2022 023 [email or web address] [facility] [address], [place], [address], 3 11:03:04 HbA1c (hemoglo bin A1c), blood 2022 023 FORTUNATO [facility], [address], [address], [place], [address], 3 08:18:08 lipid panel, serum 2022 023 FORTUNATO [facility], [address], [address], [place], [address], 3 03:37:05 CMP, serum or plasma 2022 023 FORTUNATO [facility], [address], [address], [place], [address], 3 03:37:05 TSH + free T4, serum 2022 023 FORTUNATO [facility], [address], [address], [place], [address], 3 08:18:07 CBC w/ auto diff 2022 023 FORTUNATO [facility], [address], [address], [place], [address], 3 03:37:06 vitamin D, 25-hydro xy, total, serum 2022 023 FORTUNATO [facility], [address], [address], [place], [address], 3 08:18:08 TSH, ultra-se nsitive, serum 2021 022 [email or web address] [facility], [address], [address], [place], [address], 2 14:43:35 HbA1c (hemoglo bin A1c), blood 2021 022 FORTUNATO [facility], [address], [address], [place], [address], 2 05:11:59 CBC 2021 022 [email or web address] [facility], [address] [facility], [address], [place], [address], 2 14:43:35 CMP, serum or plasma 2021 022 FORTUNATO [facility], [address], [address], [place], [address], 2 15:40:35 vaginal pathogen s panel, BRICE+prob e, vaginal fluid 2021 022 [email or web address] [facility], [address], [address], [place], [address], 2 14:43:34 RPR (rapid plasma reagin), serum 2021 022 FORTUNATO [facility], [address] [facility] [address], [address], [place], [address], 2 07:14:19 HIV 1 + 2, meaningf ul use set 2021 022 [email or web address] [facility], [address] [facility], [address], [place], [address], 2 14:43:34 Hepatiti s B virus core Ab, qual immunoas say, serum or plasma 2021 022 [email or web address] [facility], [address] [place] [address], [address], [place], [address], 2 14:43:34 hepatiti s C Ab, signal-t o-cutoff , serum or plasma 2021 022 [email or web address] [facility], [address] [facility], [address], [place], [address], 2 14:43:35 bacteria l vaginosi s + vaginiti s panel, vaginal 2020 021 HUGUENOT [facility], [address] [facility], [address], [place], [address], 1 21:07:30 Referral physical therapis t referral [address] (Outpatient Physical Therapy), [address], [place], [address], 5 11:52:52 nutritio nist/ titian referral 2022 023 [email or web address] Not available 3 15:40:46 orthoped ic surgeon referral 2022 023 [email or web address] Not available 3 15:40:46 physical therapis t referral 2022 023 [facility] Patient Access Centralized Scheduling, Centralized Scheduling, [address] [facility], [place], [address], 3 11:18:02 Procedures None recorded . Surgeries None recorded . Imaging XR, knee 2022 023 [facility] ([facility] [address] [place], [address], 3 11:43:02 Medication Orders Vitamin D2 1,250 mcg (50,000 unit) capsule [address] [facility] [address] [facility], [address] [place], [address], 5 11:27:08 Diflucan 150 mg tablet [address] [id number], [address] [facility], [place], [place], [id number], 5 11:27:09 Patient Targets Encounter Date Encounter Id Patient Goals Patient Target Last Modified By Organization Details Last Modified Time Resolution of vaginal discomfort Not available 11/20/2020 18:13:41 Patient Instructions Encounter Date Encounter Id Patient Instructions Last Modified By Organization Details Last Modified Time 11/20/2020 [id number] Pt. instructed t o avoid interrupting antibiotic dosing Not available 11/20/2020 18:14:04 05/10/2022 [id number] On the date of this encounter, I saw and examined the patient, personally verifying the rapp and critical findings in the resident s note. I reviewed and agree with the resident/fellow s findings and plan. 27 y/o female with increasing headaches [email or web address] Not available 05/10/2022 10:35:51 08/03/2022 [id number] A healthy lifestyle: care instructions Not available 08/03/2022 15:40:46 08/17/2022 [id number] A healthy lifestyle: care instructions Not available 08/17/2022 12:50:09 08/24/2024 [id number] A healthy lifestyle: care instructions [email or web address] Not available 08/24/2024 11:36:22 Reason for Referral Vp Account Director/dietitian Refer ral for Obesity Referring Physician: Cheryl Miramontes [facility], Encounter Date: 08/03/2022 Orthopedic Surgeon Referral for Pain of left knee region Referring Physician: Cheryl Miramontes [facility], Encounter Date: 08/03/2022 Physical Therapist Referral for Pain of left knee region Referring Physician: Cheryl Miramontes [facility], Encounter Date: 08/03/2022 Physical Therapist Referral for Thoracic back pain Referring Physician: Jackie Allison [facility], Encounter Date: 08/24/2024 Results Created Date Observation Date Name Description Value Unit Range Abnormal Flag Note LastModifiedBy Organization Detail LastModifiedTime 11/22/19 21 11/24/2020 bacte rial vagin osis + vagin itis panel , vagin al atopobium vaginae High - 2 score abnormal Not Available [facility] [address] [place], [address], 11/24/2020 21:07:29 11/22/1911/24/2020 bacte rial vagin osis + vagin itis panel , vagin al bvab 2 High - 2 score abnormal Not Available [facility] (Lab) [address], [place], [address], 11/24/2020 21:07:29 11/22/19 21 11/24/2020 bacte rial vagin osis + vagin itis panel , vagin al megasphaera 1 High - 2 score abnormal Calcu late total score by colby matos the 3 indiv idual bacte rial vagin osis (BV) rigoe r score s toget her. Total score is inter prete d as follo ws: Total score 0-1: Indic ates the absen ce of BV. Total score 2: Indet ermin ate for BV. Addit ional clini kaiser data shoul d be evalu ated to estab judy a diagn osis. Total score 3-6: Indic ates the prese nce of BV. . This test was devel oped and its perfo rmanc e pili cteri stics deter mined by [facility]. It has not been clear ed or appro damián by the Food and Drug Admin istra tion. Not Available [facility] (Lab) [address] [place], [address], 11/24/2020 21:07:29 11/22/19 21 11/24/2020 bacte rial vagin osis + vagin itis panel , vagin al luna albicans, BRICE Negati ve negati ve Not Available [facility] (Lab) [address] [facility], [place], [address], 11/24/2020 21:07:29 11/22/19 21 11/24/2020 bacte rial vagin osis + vagin itis panel , vagin al luna glabrata, BRICE Negati ve negati ve Not Available [facility] (Lab) [address], [place], [address], 11/24/2020 21:07:29 11/22/19 21 11/24/2020 bacte rial vagin osis + vagin itis panel , vagin al trich vag by BRICE Negati ve negati ve Not Available [facility] (Lab) [address] [place], [address], 11/24/2020 21:07:29 11/22/19 21 11/24/2020 bacte rial vagin osis + vagin itis panel , vagin al chlamydia trachomatis, BRICE Negati ve negati ve Not Available [facility] (Lab) [address] [place], [address], 11/24/2020 21:07:29 06/04/20 21 11/24/2020 bacte rial vagin osis + vagin itis panel , vagin al neisseria gonorrhoeae, BRICE Negati ve negati ve Not Available [facility] (Lab) [address], [place], [address], 11/24/2020 21:07:29 05/10/20 22 05/10/2022 CBC W/DIF F WBC 10.9 K/uL 3.4-10 .8 high Not Available [facility] (Lab) [address] [place], [address], 05/10/2022 15:25:06 05/10/20 22 05/10/2022 CBC W/DIF F red blood count 4.3 M/uL 4.2-5. 4 Not Available [facility] (Lab) [address] [place], [address], 05/10/2022 15:25:06 05/10/20 22 05/10/2022 CBC W/DIF F hemoglobin 11.6 g/dL 11.5-1 5.5 Not Available [facility] (Lab) [address] [place], [address], 05/10/2022 15:25:06 05/10/20 22 05/10/2022 CBC W/DIF F hematocrit 36.8 % 36.0-4 8.0 Not Available [facility] (Lab) [address] [place], [address], 05/10/2022 15:25:06 05/10/20 22 05/10/2022 CBC W/DIF F MCV 86 fL 80-95 Not Available [facility] ([facility]) [address] [place], [address], 05/10/2022 15:25:06 05/10/20 22 05/10/2022 CBC W/DIF F MCH 27 pg 27-32 Not Available [facility] (Lab) [address] [place], [address], 05/10/2022 15:25:06 05/10/20 22 05/10/2022 CBC W/DIF F MCHC 32 g/dL 32-36 Not Available [facility] (Lab) [address], [place], [address], 05/10/2022 15:25:06 05/10/20 22 05/10/2022 CBC W/DIF F platelets 322 K/uL 155-37 9 Not Available [facility] (Lab) [address], [place], [address], 05/10/2022 15:25:06 05/10/20 22 05/10/2022 CBC W/DIF F RDW 13.1 % 11.5-1 4.5 Not Available [facility] (Lab) [address], [place], [address], 05/10/2022 15:25:06 05/10/20 22 05/10/2022 CBC W/DIF F MPV 9.8 fL 8.9-12 .7 Not Available [facility] (Lab) [address], [place], [address], 05/10/2022 15:25:06 05/10/20 22 05/10/2022 CBC W/DIF F NRBC (auto) 0 % Not Available [facility] (Lab) [address] [place], [address], 05/10/2022 15:25:06 05/10/20 22 05/10/2022 CBC W/DIF F neutrophils absolute 7.0 K/uL 1.4-7. 0 Not Available [facility] (Lab) [address] [place], [address], 05/10/2022 15:25:06 05/10/20 22 05/10/2022 CBC W/DIF F lymphs (absolute) 2.7 K/uL 0.7-3. 1 Not Available [facility] (Lab) [address] [place], [address], 05/10/2022 15:25:06 05/10/20 22 05/10/2022 CBC W/DIF F monocytes (absolute) 0.8 K/uL 0.1-0. 9 Not Available [facility] (Lab) [address], [place], [address], 05/10/2022 15:25:06 05/10/20 22 05/10/2022 CBC W/DIF F eos (absolute) 0.3 K/uL 0.0-0. 4 Not Available [facility] (Lab) [address], [place], [address], 05/10/2022 15:25:06 05/10/20 22 05/10/2022 CBC W/DIF F baso (absolute) 0.0 K/uL 0.0-0. 3 Not Available [facility] (Lab) [address] [place], [address], 05/10/2022 15:25:06 05/10/20 22 05/10/2022 CBC W/DIF F immature grans( abs) 0.0 K/uL Not Available [facility] (Lab) [address], [place], [address], 05/10/2022 15:25:06 05/10/20 22 05/10/2022 CBC W/DIF F neut % 64.4 % 40.0-7 4.0 Not Available [facility] (Lab) [address] [place], [address], 05/10/2022 15:25:06 05/10/20 22 05/10/2022 CBC W/DIF F lymphs % 25.2 % 14.0-4 6.0 Not Available [facility] (Lab) [address] [place], [address], 05/10/2022 15:25:06 05/10/20 22 05/10/2022 CBC W/DIF F mono % 7.2 % 4.0-12 .0 Not Available [facility] (Lab) [address] [place], [address], 05/10/2022 15:25:06 05/10/20 22 05/10/2022 CBC W/DIF F eos % 2 % 0-5 Not Available [facility] ([facility]) [address] [place], [address], 05/10/2022 15:25:06 05/10/20 22 05/10/2022 CBC W/DIF F baso % 0.4 % 0.0-1. 0 Not Available [facility] (Lab) [address] [place], [address], 05/10/2022 15:25:06 05/10/20 22 05/10/2022 CBC W/DIF F immature grans% 0.4 % Not Available [facility] (Lab) [address] [place], [address], 05/10/2022 15:25:06 05/10/20 22 05/10/2022 COMPR EHENS MOE METAB OLIC PANEL glucose, serum 90 mg/dL 65-99 Not Available [facility] ([facility] [address] [place], [address], 05/10/2022 15:40:35 05/10/20 22 05/10/2022 COMPR EHENS MOE METAB OLIC PANEL BUN 10 mg/dL 8-26 Not Available [facility] (Lab) [address] [place], [address], 05/10/2022 15:40:35 05/10/20 22 05/10/2022 COMPR EHENS MOE METAB OLIC PANEL creatinine, serum 0.60 mg/dL 0.50-1 .40 Not Available [facility] (Lab) [address] [place], [address], 05/10/2022 15:40:35 05/10/20 22 05/10/2022 COMPR EHENS MOE METAB OLIC PANEL BUN/creatnin e ratio 17.2 Not Available [facility] (Lab) [address], [place], [address], 05/10/2022 15:40:35 05/10/20 22 05/10/2022 COMPR EHENS MOE METAB OLIC PANEL sodium, serum 139.4 mmol/ L 136.0- 144.0 Not Available [facility]) [address] [place], [address], 05/10/2022 15:40:35 05/10/20 22 05/10/2022 COMPR EHENS MOE METAB OLIC PANEL potassium, serum 4.8 mmol/ L 3.5-5. 3 Not Available [facility] (Lab) [address], [place], [address], 05/10/2022 15:40:35 05/10/20 22 05/10/2022 COMPR EHENS MOE METAB OLIC PANEL chloride, serum 104 mmol/ l 101-11 1 Not Available [facility] (Lab) [address], [place], [address], 05/10/2022 15:40:35 05/10/20 22 05/10/2022 COMPR EHENS MOE METAB OLIC PANEL carbon dioxide total 25.2 mmol/ L 21.0-3 2.0 Not Available [facility]) [address], [place], [address], 05/10/2022 15:40:35 05/10/20 22 05/10/2022 COMPR EHENS MOE METAB OLIC PANEL aniongp 15.0 mmol/ L Not Available [facility]) [address], [place], [address], 05/10/2022 15:40:35 05/10/20 22 05/10/2022 COMPR EHENS MOE METAB OLIC PANEL calcium, serum 9.4 mg/dL 8.2-10 .0 Not Available [facility]) [address] [place], [address], 05/10/2022 15:40:35 05/10/20 22 05/10/2022 COMPR EHENS MOE METAB OLIC PANEL total protein 7.1 g/dL 6.7-8. 2 Not Available [facility] (Lab) [address], [place], [address], 05/10/2022 15:40:35 05/10/20 22 05/10/2022 COMPR EHENS MOE METAB OLIC PANEL albumin, serum 4.3 g/dL 3.5-5. 5 Not Available [facility] (Lab) [address] [place], [address], 05/10/2022 15:40:35 05/10/20 22 05/10/2022 COMPR EHENS MOE METAB OLIC PANEL total globulin 2.8 g/dL 1.5-4. 5 Not Available [facility] (Lab) [address], [place], [address], 05/10/2022 15:40:35 05/10/20 22 05/10/2022 COMPR EHENS MOE METAB OLIC PANEL agratio 1.5 Not Available [facility] (Lab) [address], [place], [address], 05/10/2022 15:40:35 05/10/20 22 05/10/2022 COMPR EHENS MOE METAB OLIC PANEL bilt 0.2 mg/dL 0.0-1. 2 Not Available [facility] (Lab) [address] [place], [address], 05/10/2022 15:40:35 05/10/20 22 05/10/2022 COMPR EHENS MOE METAB OLIC PANEL AST 13.0 U/L 10.0-4 2.0 Not Available [facility] (Lab) [address], [place], [address], 05/10/2022 15:40:35 05/10/20 22 05/10/2022 COMPR EHENS MOE METAB OLIC PANEL ALT 10.2 U/L 10.0-6 0.0 Not Available [facility] (Lab) [address], [place], [address], 05/10/2022 15:40:35 05/10/20 22 05/10/2022 COMPR EHENS MOE METAB OLIC PANEL alk phos 56.5 IU/L 42.0-1 21.0 Not Available [facility] (Lab) [address], [place], [address], 05/10/2022 15:40:35 05/10/20 22 05/10/2022 COMPR EHENS MOE METAB OLIC PANEL osmol 277.0 mOsm/ L 275.0- 301.0 Not Available [facility] (Lab) [address], [place], [address], 05/10/2022 15:40:35 05/10/20 22 05/10/2022 COMPR EHENS MOE METAB OLIC PANEL eGFR 126 mL/mi n/1.7 3 >=60 Not Available [facility] (Lab) [address], [place], [address], 05/10/2022 15:40:35 05/10/20 22 05/10/2022 TSH W/REF JOSE ANGEL TO FT4 TSH 1.20 uIU/m L 0.50-4 .50 Not Available [facility] (Lab) [address], [place], [address], 05/10/2022 17:58:44 05/10/20 22 05/11/2022 HEMOG LOBIN A1C hemoglobin A1C 5.5 % 4.8-5. 6 . Predi abete s: 5.7 - 6.4 Diabe anna: >6.4 Glyce soto contr ol for adult s with diabe anna: <7.0 Not Available [facility] (Lab) [address], [place], [address], 05/11/2022 05:11:59 05/10/20 22 05/11/2022 HIV AG/AB WITH REFLE X, 4TH GEN HIV 4TH generation Non Reacti ve non reacti ve HIV Negat moe HIV-1 /HIV- 2 antib odies and HIV-1 p24 antig en were NOT detec vince. There is no labor atory evide nce of HIV infec tion. Not Available [facility] (Lab) [address], [place], [address], 05/11/2022 07:14:10 05/10/20 22 05/11/2022 RPR, RFX QN RPR/C ONFIR M TP RPR Non Reacti ve non reacti ve Not Available [facility] (Lab) [address], [place], [address], 05/11/2022 07:14:19 05/10/20 22 05/11/2022 HCV ANTIB YUNIOR RFX TO QUANT PCR HCV Ab <0.1 s/co_ ratio 0.0-0. 9 Not Available [facility] (Lab) [address], [place], [address], 05/11/2022 08:15:39 05/10/20 22 05/11/2022 HCV ANTIB YUNIOR RFX TO QUANT PCR interpretati on: SPRCS Negat moe Not infec vince with HCV, unles s recen t infec tion is suspe cted or other evide nce exist s to indic ate HCV infec tion. Not Available [facility] (Lab) [address], [place], [address], 05/11/2022 08:15:39 05/10/20 22 05/11/2022 HEPAT ITIS B CORE AB W/REF JOSE ANGEL hep B core Ab, tot Negati ve negati ve Not Available [facility] (Lab) [address], [place], [address], 05/11/2022 08:15:42 05/10/20 22 05/12/2022 NUSWA B VAGIN ITIS PLUS (VG+) atopobium vaginae High - 2 score abnormal Not Available [facility] (Lab) [address], [place], [address], 05/12/2022 08:15:34 05/10/20 22 05/12/2022 NUSWA B VAGIN ITIS PLUS (VG+) bvab 2 High - 2 score abnormal Not Available [facility] (Lab) [address] [place], [address], 05/12/2022 08:15:34 05/10/20 22 05/12/2022 NUSWA B VAGIN ITIS PLUS (VG+) megasphaera 1 High - 2 score abnormal Calcu late total score by colby matos the 3 indiv idual bacte rial vagin osis (BV) marke r score s toget her. Total score is inter prete d as follo ws: Total score 0-1: Indic ates the absen ce of BV. Total score 2: Indet ermin ate for BV. Addit ional clini kaiser data shoul d be evalu ated to estab judy a diagn osis. Total score 3-6: Indic ates the prese nce of BV. . This test was devel oped and its perfo rmanc e pili cteri stics deter mined by [facility]. It has not been clear ed or appro damián by the Food and Drug Admin istra tion. Not Available [facility] (Lab) [address], [place], [address], 05/12/2022 08:15:34 05/10/20 22 05/12/2022 NUSWA B VAGIN ITIS PLUS (VG+) luna albicans, BRICE Positi ve negati ve abnormal Not Available [facility] (Lab) [address] [place], [address], 05/12/2022 08:15:34 05/10/20 22 05/12/2022 NUSWA B VAGIN ITIS PLUS (VG+) luna glabrata, BRICE Negati ve negati ve Not Available [facility] (Lab) [address] [place], [address], 05/12/2022 08:15:34 05/10/20 22 05/12/2022 NUSWA B VAGIN ITIS PLUS (VG+) trich vag by BRICE Negati ve negati ve Not Available [facility] (Lab) [address] [place], [address], 05/12/2022 08:15:34 05/10/20 22 05/12/2022 NUA B VAGIN ITIS PLUS (VG+) chlamydia trachomatis, BRICE Negati ve negati ve Not Available [facility] (Lab) [address] [place], [address], 05/12/2022 08:15:34 05/10/20 22 05/12/2022 NUA B VAGIN ITIS PLUS (VG+) neisseria gonorrhoeae, BRICE Negati ve negati ve Not Available [facility] (Lab) [address], [place], [address], 05/12/2022 08:15:34 08/03/19 23 08/03/2022 LIPID PANEL cholesterol, total 159.9 mg/dL 140.0- 200.0 Not Available [facility] ([facility]) [address] [place], [address], 08/04/2022 03:37:05 08/03/19 23 08/03/2022 LIPID PANEL triglyceride s 67 mg/dL <=150 Not Available [facility] ([facility]) [address] [place], [address], 08/04/2022 03:37:05 08/03/1908/03/2022 LIPID PANEL HDL cholesterol 59.5 mg/dL 40.0-1 00.0 Not Available [facility] ([facility]) [address] [place], [address], 08/04/2022 03:37:05 08/03/19 23 08/03/2022 LIPID PANEL VLDL cholesterol kaiser 13.40 mg/dL 5.00-4 0.00 Not Available [facility] ([facility]) [address] [place], [address], 08/04/2022 03:37:05 08/03/19 23 08/03/2022 LIPID PANEL LDL chol calc ([facility]) 87.3 Not Available [facility] ([facility]) [address] [facility] [place], [address], 08/04/2022 03:37:05 08/03/19 23 08/03/2022 COMP. METAB OLIC PANEL (14) glucose 64 mg/dL 65-99 below low normal ANION GP 16.0 mmol/ L N OSMOL 274.0 mOsM/ L L REFER ENCE RANGE : 275.0 -301. 0 Not Available [facility] ([facility]) [address] [facility] [place], [address], 08/04/2022 03:37:05 08/03/19 23 08/03/2022 COMP. METAB OLIC PANEL (14) BUN 8 mg/dL 8-26 Not Available [facility] ([facility]) [address] [place], [address], 08/04/2022 03:37:05 08/03/19 23 08/03/2022 COMP. METAB OLIC PANEL (14) creatinine 0.60 mg/dL 0.50-1 .40 Not Available [facility] ([facility]) [address] [place], [address], 08/04/2022 03:37:05 08/03/19 23 08/03/2022 COMP. METAB OLIC PANEL (14) eGFR 126 mL/mi n/1.7 3 >=60 Not Available [facility] ([facility]) [address] [place], [address], 08/04/2022 03:37:05 08/03/19 23 08/03/2022 COMP. METAB OLIC PANEL (14) BUN/creatini ne ratio 13.5 Not Available [facility] ([facility]) [address] [place], [address], 08/04/2022 03:37:05 08/03/19 23 08/03/2022 COMP. METAB OLIC PANEL (14) sodium 139.0 mmol/ L 136.0- 144.0 Not Available [facility] ([facility]) [address] [place], [address], 08/04/2022 03:37:05 08/03/19 23 08/03/2022 COMP. METAB OLIC PANEL (14) potassium 4.0 mmol/ L 3.5-5. 3 Not Available [facility] ([facility]) [address] [place], [address], 08/04/2022 03:37:05 08/03/19 23 08/03/2022 COMP. METAB OLIC PANEL (14) chloride 102 mmol/ l 101-11 1 Not Available [facility] ([facility]) [address] [place], [address], 08/04/2022 03:37:05 08/03/19 23 08/03/2022 COMP. METAB OLIC PANEL (14) carbon dioxide, total 24.4 mmol/ L 21.0-3 2.0 Not Available [facility] ([facility]) [address] [facility] [place], [address], 08/04/2022 03:37:05 08/03/19 23 08/03/2022 COMP. METAB OLIC PANEL (14) calcium 9.1 mg/dL 8.2-10 .0 Not Available [facility] ([facility]) [address] [facility] [place], [address], 08/04/2022 03:37:05 08/03/19 23 08/03/2022 COMP. METAB OLIC PANEL (14) protein, total 7.2 g/dL 6.7-8. 2 Not Available [facility] ([facility]) [address] [place], [address], 08/04/2022 03:37:05 08/03/19 23 08/03/2022 COMP. METAB OLIC PANEL (14) albumin 4.3 g/dL 3.5-5. 5 Not Available [facility] ([facility]) [address] [facility], [place], [address], 08/04/2022 03:37:05 08/03/19 23 08/03/2022 COMP. METAB OLIC PANEL (14) globulin, total 2.9 g/dL 1.5-4. 5 Not Available [facility] ([facility]) [address] [facility], [place], [address], 08/04/2022 03:37:05 08/03/19 23 08/03/2022 COMP. METAB OLIC PANEL (14) A/G ratio 1.4 Not Available [facility] ([facility]) [address] [facility], [place], [address], 08/04/2022 03:37:05 08/03/19 23 08/03/2022 COMP. METAB OLIC PANEL (14) bilirubin, total 0.2 mg/dL 0.0-1. 2 Not Available [facility] ([facility]) [address] [facility], [place], [address], 08/04/2022 03:37:05 08/03/19 23 08/03/2022 COMP. METAB OLIC PANEL (14) alkaline phosphatase 61.2 IU/L 42.0-1 21.0 Not Available [facility] ([facility]) [address] [facility], [place], [address], 08/04/2022 03:37:05 08/03/19 23 08/03/2022 COMP. METAB OLIC PANEL (14) AST (SGOT) 16.1 U/L 10.0-4 2.0 Not Available [facility] ([facility]) [address] [facility], [place], [address], 08/04/2022 03:37:05 08/03/19 23 08/03/2022 COMP. METAB OLIC PANEL (14) ALT (SGPT) 9.9 U/L 10.0-6 0.0 below low normal Not Available [facility] ([facility]) [address] [place], [address], 08/04/2022 03:37:05 08/03/19 23 08/03/2022 CBC WITH DIFFE RENTI AL/PL ATELE T WBC 10.9 K/uL 3.4-10 .8 above high normal Not Available [facility] ([facility]) [address] [place], [address], 08/04/2022 03:37:06 08/03/19 23 08/03/2022 CBC WITH DIFFE RENTI AL/PL ATELE T RBC 4.2 M/uL 4.2-5. 4 Not Available [facility] ([facility]) [address] [place], [address], 08/04/2022 03:37:06 08/03/19 23 08/03/2022 CBC WITH DIFFE RENTI AL/PL ATELE T hemoglobin 11.5 g/dL 11.5-1 5.5 Not Available [facility] ([facility]) [address] [place], [address], 08/04/2022 03:37:06 08/03/19 23 08/03/2022 CBC WITH DIFFE RENTI AL/PL ATELE T hematocrit 35.8 % 36.0-4 8.0 below low normal Not Available [facility] ([facility]) [address] [place], [address], 08/04/2022 03:37:06 08/03/19 23 08/03/2022 CBC WITH DIFFE RENTI AL/PL ATELE T MCV 85 fL 80-95 Not Available [facility] ([facility]) [address] [place], [address], 08/04/2022 03:37:06 0208/03/2022 CBC WITH DIFFE RENTI AL/PL ATELE T MCH 27 pg 27-32 Not Available [facility] ([facility]) [address] [facility], [place], [address], 08/04/2022 03:37:06 08/03/19 23 08/03/2022 CBC WITH DIFFE RENTI AL/PL ATELE T MCHC 32 g/dL 32-36 Not Available [facility] ([facility]) [address] [facility], [place], [address], 08/04/2022 03:37:06 08/03/19 23 08/03/2022 CBC WITH DIFFE RENTI AL/PL ATELE T RDW 13.4 % 11.5-1 4.5 Not Available [facility] ([facility]) [address] [place], [address], 08/04/2022 03:37:06 08/03/19 23 08/03/2022 CBC WITH DIFFE RENTI AL/PL ATELE T platelets 289 K/uL 155-37 9 MPV 10.2 FL 8.9-1 2.7 N Not Available [facility] ([facility]) [address] [place], [address], 08/04/2022 03:37:06 08/03/19 23 08/03/2022 CBC WITH DIFFE RENTI AL/PL ATELE T neutrophils 63.2 % 40.0-7 4.0 Not Available [facility] ([facility]) [address] [place], [address], 08/04/2022 03:37:06 08/03/19 23 08/03/2022 CBC WITH DIFFE RENTI AL/PL ATELE T lymphs 24.8 % 14.0-4 6.0 Not Available [facility] ([facility]) [address] [place], [address], 08/04/2022 03:37:06 08/03/19 23 08/03/2022 CBC WITH DIFFE RENTI AL/PL ATELE T monocytes 8.2 % 4.0-12 .0 Not Available [facility] ([facility]) [address] [place], [address], 08/04/2022 03:37:06 08/03/19 23 08/03/2022 CBC WITH DIFFE RENTI AL/PL ATELE T eos 2 % 0-5 Not Available [facility] ([facility]) [address] [place], [address], 08/04/2022 03:37:06 08/03/1908/03/2022 CBC WITH DIFFE RENTI AL/PL ATELE T basos 0.4 % 0.0-1. 0 Not Available [facility] ([facility]) [address] [place], [address], 08/04/2022 03:37:06 08/03/19 23 08/03/2022 CBC WITH DIFFE RENTI AL/PL ATELE T neutrophils (absolute) 6.9 K/uL 1.4-7. 0 Not Available [facility] ([facility]) [address] [place], [address], 08/04/2022 03:37:06 08/03/19 23 08/03/2022 CBC WITH DIFFE RENTI AL/PL ATELE T lymphs (absolute) 2.7 K/uL 0.7-3. 1 Not Available [facility] ([facility]) [address] [place], [address], 08/04/2022 03:37:06 08/03/19 23 08/03/2022 CBC WITH DIFFE RENTI AL/PL ATELE T monocytes(ab solute) 0.9 K/uL 0.1-0. 9 Not Available [facility] ([facility]) [address] [place], [address], 08/04/2022 03:37:06 08/03/1912 0808/03/2022 CBC WITH DIFFE RENTI AL/PL ATELE T eos (absolute) 0.2 K/uL 0.0-0. 4 Not Available [facility] ([facility]) [address] [facility], [place], [address], 08/04/2022 03:37:06 08/03/19 23 08/03/2022 CBC WITH DIFFE RENTI AL/PL ATELE T baso (absolute) 0.0 K/uL 0.0-0. 3 Not Available [facility] ([facility]) [address] [place], [address], 08/04/2022 03:37:06 08/03/19 23 08/03/2022 CBC WITH DIFFE RENTI AL/PL ATELE T immature granulocytes 1.6 % Not Available [facility] ([facility]) [address] [place], [address], 08/04/2022 03:37:06 08/03/19 23 08/03/2022 CBC WITH DIFFE RENTI AL/PL ATELE T immature grans (abs) 0.2 K/uL Not Available [facility] ([facility]) [address] [place], [address], 08/04/2022 03:37:06 08/03/19 23 08/03/2022 CBC WITH DIFFE RENTI AL/PL ATELE T NRBC 0 % Not Available [facility] ([facility]) [address] [place], [address], 08/04/2022 03:37:06 08/03/19 23 08/04/2022 TSH+F REE T4 TSH 1.420 uIU/m L 0.450- 4.500 Not Available [facility] ([facility]) [address] [place], [address], 08/04/2022 08:18:07 02/14/20 23 08/04/2022 TSH+F REE T4 T4,free(dire ct) 1.03 NG/dL 0.82-1 .77 Not Available [facility] ([facility]) [address] [facility], [place], [address], 08/04/2022 08:18:07 08/03/1908/04/2022 HEMOG LOBIN A1C hemoglobin A1C 5.4 % 4.8-5. 6 Predi abete s: 5.7 - 6.4 Diabe anna: >6.4 Glyce soto contr ol for adult s with diabe anna: <7.0 Not Available [facility] ([facility]) [address] [facility], [place], [address], 08/04/2022 08:18:07 08/03/1908/04/2022 VITAM IN D, 25-HY DROXY vitamin D, 25-hydroxy 12.9 NG/mL 30.0-1 00.0 below low normal Vitam in D defic iency has been defin ed by the Insti tute of Medic ine and an Endoc rine Socie ty pract ice guide line as a level of serum 25-OH vitam in D less than 20 ng/mL (1,2) . The Endoc rine Socie ty went on to furth er defin e vitam in D insuf ficie ncy as a level betwe en 21 and 29 ng/mL (2). 1. IOM (Inst itute of Medic ine). 2010. Dieta ry refer ence yves es for calci um and D. Sofiya gutierrez [place]: The Natio nal [facility] Press . 2. Gabriel rutherford MF, Dorothy ey [place], Bisch off-F errar i HERNANDEZ, et al. Evalu ation , treat ment, and preve ntion of vitam in D defic iency : an Endoc rine Socie ty clini [facility] pract ice guide line. JCEM. 2010; 96(7) :1911 -30. Not Available [facility] ([facility]) [address] [facility], [place], [address], 08/04/2022 08:18:08 08/03/1908/04/2022 CARDI OVASC ULAR REPOR T interpretati on Note Suppl rod al repor t is avail able. Not Available [facility] ([facility]) [address] [facility], [place], [address], 08/04/2022 03:37:06 08/03/19 23 08/04/2022 CARDI OVASC ULAR REPOR T pdf . Not Available [facility] ([facility]) [address] [facility], [place], [address], 08/04/2022 03:37:06 Result Notes None recorded. Problems No Known Problems Procedures Surgical History Date Name Laterality Status Provider Name and Address Organization Details Recorded Time 07/24/2020 Date of Last Pap Smear completed Cristal Delgadillo [place] - [place] 08/19/2020 10:51:35 Imaging Results None recorded. Procedure Notes None recorded. Medical Equipment None Reported. Allergies No known drug allergies Medications Name Sig Start Date Stop Date Status Note LastModified by Organization Details LastModified Time amoxicillin 500 mg capsule 04/02 completed Not Available Not Available Not Available doxycycline hyclate 100 mg capsule TAKE 1 CAPSULE BY MOUTH TWICE DAILY 08/24 completed Not Available Not Available Not Available fluconazole 150 mg tablet TAKE DIRECTED 08/24 completed Not Available Not Available Not Available hydrocodone 5 mg-acetamin ophen 325 mg tablet TAKE 1 TABLET BY MOUTH EVERY 4 TO 6 HOURS NEEDED FOR PAIN 08/24 completed Not Available Not Available Not Available fluconazole 200 mg tablet TAKE 1 TABLET BY MOUTH EVERY OTHER DAY FOR 3 DOSES 08/24 completed Not Available Not Available Not Available metronidazo le 0.75 % (37.5 mg/5 gram) vaginal gel INSERT VAGINALLY AT NIGHT FOR 5 DAYS 08/24 completed Not Available Not Available Not Available penicillin V potassium 500 mg tablet TAKE 1 TABLET BY MOUTH FOUR TIMES DAILY UNTIL ALL TAKEN 08/24 completed Not Available Not Available Not Available metronidazo le 500 mg tablet TAKE 1 TABLET BY MOUTH EVERY 12 HOURS FOR 7 DAYS 08/24 completed Not Available Not Available Not Available acetaminoph en 300 mg-codeine 30 mg tablet 04/02 completed Not Available Not Available Not Available amoxicillin 875 mg tablet TAKE 1 TABLET BY MOUTH TWICE DAILY UNTIL GONE 08/24 completed Not Available Not Available Not Available phenazopyri dine 100 mg tablet TAKE 1 TABLET BY MOUTH THREE TIMES DAILY NEEDED FOR 3 DAYS 08/24 completed Not Available Not Available Not Available cephalexin 500 mg tablet TAKE 1 TABLET BY MOUTH EVERY 12 HOURS FOR 7 DAYS 08/24 completed Not Available Not Available Not Available pyridoxine (vitamin B6) 100 mg tablet Take 1 tablet every day by oral route. 08/19 completed Not Available Not Available Not Available ergocalcife rol (vitamin D2) 1,250 mcg (50,000 unit) capsule TAKE 1 CAPSULE BY MOUTH ONCE A WEEK 08/24 completed Not Available Not Available Not Available amoxicillin 875 mg-potassiu m clavulanate 125 mg tablet TAKE 1 TABLET BY MOUTH EVERY 12 HOURS WITH MEALS FOR 5 DAYS 08/24 completed Not Available Not Available Not Available azithromyci n 500 mg tablet Take 2 tablets as needed by oral route for 1 day. 04/02 completed Not Available Not Available Not Available azelaic acid 15 % topical gel APPLY TOPICALLY TO FACE EVERY MORNING FOR ACNE 08/24 completed Not Available Not Available Not Available nitrofurant oin monohydrate /macrocryst als 100 mg capsule TAKE 1 CAPSULE BY MOUTH EVERY 12 HOURS WITH MEALS FOR 7 DAYS 08/24 completed Not Available Not Available Not Available adapalene 0.1 %-benzoyl peroxide 2.5 % topical gel with pump APPLY TOPICALLY TO FACE EVERY EVENING FOR ACNE 08/24 completed Not Available Not Available Not Available Vitals Date Recorded Body height Body mass index (BMI) Body weight Systolic blood pressure Diastolic blood pressure Provider Name and Address Organization Details Last Updated DateTime 11/20/2020 165.1 cm 33.6 kg/m2 87941.66 g 104 mm[Hg] 60 mm[Hg] Lexi Devries RN [facility] 17:48:58 Date Recorded Body weight Body height Body mass index (BMI) Systolic blood pressure Diastolic blood pressure Provider Name and Address Organization Details Last Updated DateTime 05/10/2022 84357.51 g 165.1 cm 32.4 kg/m2 118 mm[Hg] 74 mm[Hg] Hermelinda Cha MA [facility] 2 09:40:18 Date Recorded Body height Body mass index (BMI) Body weight Oxygen saturation Oxygen saturation in Arterial blood by Pulse oximetry Heart rate Respiratory rate Body temperature Systolic blood pressure Diastolic blood pressure Provider Name and Address Organization Details Last Updated DateTime 3 165.1 cm 33.2 kg/m2 23003.3 3 g 98 % 98 % 88 /min 18 /min 97.7 [degF] 98 mm[Hg] 88 mm[Hg] Therese Lion MA [facility] 3 15:05:47 Date Recorded Body height Provider Name an d Address Organization Details Last Updated DateTime 08/17/2022 165.1 cm Therese Lion MA [facility] 08/17 12:39:47 Date Recorded Body height Body mass index (BMI) Body weight Oxygen saturation Oxygen saturation in Arterial blood by Pulse oximetry Heart rate Respiratory rate Systolic blood pressure Diastolic blood pressure Provider Name and Address Organization Details Last Updated DateTime 5 165.1 cm 35.4 kg/m2 45314.3 8 g 97 % 97 % 81 /min 16 /min 112 mm[Hg] 75 mm[Hg] Carol Poe MA [facility] 5 11:26:34 Social History Question Answer Notes LastModified by Organizat ion Details LastModified Time Tobacco Smoking Status Never Smoker Therese Lion MA null, [facility] 08/03/2022 15:08:29 What Is Your Level Of Alcohol Consumption? Moderate Information not available 04/02/2019 What Is Your Level Of Caffeine Consumption? None Information not available 04/02/2019 How Much Tobacco Do You Chew? None Information not available 04/02/2019 Which Illicit Or Recreational Drugs Have You Used? None Information not available 04/02/2019 Do You Or Have You Ever Used E-cigarettes Or Vape? Never Used Electronic Cigarettes Information not available 04/02/2019 Education 2 Year College Informatio n not available 04/02/2019 Hard Of Hearing Or Deaf In One Or Both Ears? No Information not available 04/02/2019 Legally Blind In One Or Both Eyes? No Information no t available 04/02/2019 Live Alone Or With Others? With Others Information not available 04/02/2019 What Was The Date Of Your Most Recent Tobacco Screening? 08/24/2024 [email or web address] Information not available 08/24/2024 How Many Children Do You Have? 0 Information not available 04/02/2019 Do You Use Protection During Sex? Always Information not available 04/02/2019 Are You Passively Exposed To Smoke? No Information no t available 04/02/2019 Do You Or Have You Ever Used Smokeless Tobacco? Never Used Smokeless Tobacco Information not available 04/02/2019 How Much Tobacco Do You Smoke? No Information not available 04/02/2019 General Stress Level Low Information not available 04/02/2019 Has Tobacco Cessation Counseling Been Provided? Yes Information not available 08/24/2024 On What Date Was Tobacco Cessation Counseling Provided? 08/24/2024 [email or web address] Information not available 08/24/2024 Sex: Unknown Functional Status None recorded. Mental Status None recorded. Family History Relationship Description Onset Age of this Age Resolved Age Notes LastModified by Organization Details LastModified Time Father Gout [email or web address] Not available 04/02/2019 10:53:41 Father Diabetes mellitus [email or web address] Not available 04/02 10:53:46 Father Hypertensive disorder [email or web address] Not available 04/02 10:53:56 Mother Hypertensive disorder [email or web address] Not available 2024 15:53:27 Medical History Condition Response Coronary Artery Disease N Other N High Blood Pressure N Atrial Fibrillation N Thyroid Problems N Kidney or Bladder Problems N GI Problems N Depression N COPD N Blood Clots N Skin Problems N Eating Disorder N Anemia N Heart Attack (NM) N Anxiety Disorder N Diabetes N Muscle, Joint, or Bone Problems N Seizures/Epilepsy N Acid Reflux (GERD) N Cancer N Stroke N Asthma N Allergies N ADHD N Substance Abuse N High Cholesterol N Hepatitis N Liver Disease N Schizophrenia N Headaches N Heart Failure N Osteoporosis N Gynecological History Statement/Question Response Flow Moderate Date of LMP 08/18/2024 On BCP's at Conception? N STIs/STDs N HPV Vaccine N Duration of Flow (days) 5 Age at Menarche 12 Current Control Method None Frequency of Cycle (Q days) 28 Sexually Active? Y Menses Monthly Y Date of Last Pap Smear 07/24/2020 Sexual Problems? N LMP Approximate Obstetrics History GPAL:G 1 P 0 0 0 1 Type Value Living 1 Total 1 Past Encounters Encounter ID Performer Location Encounter Start Date Encounter Closed Date Diagnosis/Indication Diagnosis SNOMED-CT Code Diagnosis ICD10 Code Diagnosis Note [id number] [facility] (HELP DESK ASSISTANT) [address] [place] [address] 12/03/2016 14:38:17 12/03/2016 17:09:40 High risk sexual behavior 501987101 Z72.51 Gynecologi c examination 54234314 Z01.181 [id number] [facility] (HELP DESK ASSISTANT) [address] [place] [address] 12/14/2016 16:34:47 12/14/2016 17:30:32 Chlamydial infection 575596212 A74.9 [id number] [facility] (HELP DESK ASSISTANT) [address] [place] [address] 01/13/2017 16:37:28 01/13/2017 17:18:35 Venereal disease screening 373269524 Z11.3 [id number] [facility] (HELP DESK ASSISTANT) [address] [place] [address] 11/04/2017 15:29:11 11/04/2017 16:13:39 High risk sexual behavior 803177054 Z72.51 Gynecologi c examination 94042766 Z01.266 [id number] [facility] (HELP DESK ASSISTANT) [address] [place] [address] 01/17/2019 15:49:48 01/18/2019 07:55:46 Gynecologic examination 74196412 Z01.419 [facility] 46388820 B37 .9 High risk sexual behavior 385029295 Z72.51 [id number] Merari Angulo MD [facility] [address] [place] [address] 04/02/2019 10:33:12 04/03/2019 09:20:14 Gynecomastia 8213603 N62 discussed avoiding caffeine, tea, and chocolate to decrease breast tenderness . Patient is wearing appropriat diane supportive undergarme nts. Chronic back pain 298362 002 M54.9 Insofar as patient has not had trauma or lifelong problems with upper back pain, I think a trial of conservati ve therapy with physical therapy may be beneficial in strengthen ing the back and neck muscles and improving posture. Depression screening 171 629968 Z13.31 patient does not appear to be significan tly depressed. [id number] [facility] (HELP DESK ASSISTANT) [address] [place] [address] 08/19/2020 10:20:37 08/19/2020 13:16:35 Gynecologic examination 64293887 Z01.419 Venereal d isease screening 744516419 Z11.3 [id number] [facility] (HELP DESK ASSISTANT) [address] [place] [address] 11/20/2020 17:22:33 11/23/2020 01:05:03 Vaginitis 05614395 N76.0 [id number] Shalini Pimentel MD [facility] (HELP DESK ASSISTANT) [address] [place] [address] 05/10/2022 09:20:24 05/11/2022 14:18:42 Venereal disease screening 743885132 Z11.3 Hx of BV in 2020 & chlamydia in 2017.Sexua lly active, 2 partners last yr. Inconsiste nt condom use.Discus sed safe sex practices and importance of barrier contracept martin.Pt requests STD testing. Excessive weight gain 22 6325923 R63.5 10lbs unintentio nal weight gain. Discusses excess stress and limited exercise. Will test for medical causes of excessive weight (DM2, Hypothyroi dism. adrenals). No evidence of thyroid dysfunctio n on physical exam Adult heal th examination 524046313 Z00.00 PHQ9 of 13 & JAYLENE 7 of 10. Economic stressors. Denies any about or depressive symptoms at this time.Unrem arkable physical exam.Discu ssed the importance of safe sex practices and recommende d beginning vitamins if desires or sexually active.SHAHIDA S: Denies any stressors. Resilience : 59/60SDOH: Economic Rent & UtilitiesD iscussed the importance of brain to medical attention if she develops life stressors that become debilitati ng.Discuss ed daily exercise 150 minutes per week and healthy diet.recen felicity Pap was last year and not due at this time. Body mass index 30+ - obesity 490927239 Z68.32 Management as per above. [id number] Cheryl Miramontes PA-C [facility] (Adult Med) [address] [place] [address] 08/03/2022 14:38:31 08/17/2022 11:29:12 Body mass index 30+ - obesity 363875959 Z68.30 Obesity 917913211 E66.9 Pain of le ft knee region 5072464075 55317 M25.562 several month historyno traumadisc ussed weight lossxrayso rtho and PT referral [id number] Cheryl Miarmontes PA-C [facility] (Adult Med) [address] [place] [address] 08/17/2022 12:25:34 08/19/2022 11:00:04 Body mass index 30+ - obesity 818278286 Z68.30 Vitamin D deficiency 347 44301 E55.9 Obesity 898549304 E66.9 Pain of le ft knee region 4059463722 59732 M25.562 several month historyno traumadisc ussed weight lossxrayso rtho and PT referral [id number] [facility] [employer] [facility] [address] [place] [address] 08/24/2024 11:15:18 08/24/2024 11:52:52 Thoracic back pain 695182284 M54.6 since epidural 05/2023mid back, worse with bending and laying downsharp pain, no relief with OTC therapiesr efer to PT Obesity 189134878 E66.9 BMI 35.4discus sed increasing exercise and healthier food options, high protein, low fat dietroutin e labstrying supplement s, going to the gym, cardio- running, stair masterno breakfast, only 1 meal per day, encouraged to increase food intake throughout the day Depression screening 171 627475 Z13.31 0 Health Concerns Section Related Observation LastModified by Organization Detai ls LastModified Time None Recorded Concern Status LastModified by Organization Details LastModified Time None Recorded Advance Directives Directive None Recorded Payers Encounter Date Sequence Insurance Name Policy Number Policy Lazar Covered Member ID Lazar Member ID Guarantor Name 11/20/2020 1 [place] [id number] Frank Harris [id number] Frank Steven 05/10/2022 1 [place] [id number] Frank Harris [id number] Jujugil Harris 08/03/2022 1 [employer] Gloriasidneygil Harris [id number] Frank aHrris 08/17/2022 1 [employer] Gloriamonica Steven [id number] Frank Harris 08/24/2024 1 [facility] ([facility] [id number] Gloriasidneygil Harris [id number] Frank Harris Notes Date Note Type Note Provider Name and Address Organization Details Recorded Time 11/20/2020 text/html with c/o vaginal discharge with odor and itching. Was treated for dental work and given antibiotics. Vaginal problems shortly after starting medication. Did not finish due to itching. Cristal [facility], [place] - [place] 11/20/2020 18:14:40 05/10/2022 text/html 27yo F w/ no kno w PMH presenting for annual visit. States has h/a daily for 1hr bitemporal eyes. Alleviated w/ removal of eye glasses. Had last vision test in August. Denies any diplopia or blurry vision. Denies any SOB, CP, Abd pain, constipation or diarrhea. Sexually active 2 partners in last yr. no contraceptive, inconsistent condom use. Desires w/in next 5yrs. No prenatals. Marijuana use regularly. Denies tobacco or ETOH. Healthy diet. No exercise, but works 2 jobs and walks 10K steps/day. Reports unintentional weight gain of 10lbs in last yr. Denies any constipation or hair changes. Pt expresses that she Is contemplating children in the future, but has not began taking vitamins.Patient mentions that she has concerns about STI exposure and requests to have complete testing done.PHQ-9 score of 13. Jaylene score of 10. Discussed with patient life stressors. Patient states that she is able to deal with them adequately and denies any depressive or anxiety symptoms. She reports that she has stresses over being able to provide for family and working 2 jobs. She denies any problems with concentration, sleep or interest. She denies any psychomotor agitation. Shalini Pimentel MD Attn: Accounting,[address] [place], [address], [facility] 05/11/2022 17:31:22 08/03/2022 text/html KneeReported bypatient.Quality:a everton; throbbing Severity:mild Timing:gradual Context:overuse Alleviating Factors:rest; elevation; NSAIDs Associated Symptoms:no weakness; no numbness; no tingling; no redness; no warmth; no ecchymosis; no catching/locking; no buckling; no grinding; no instability; no radiation down leg; no drainage; no fever; no chills; no weight loss; no change in bowel/bladder habits;swelling;pop ping/clicking Cheryl Miramontes PA-C Attn: Accounting[address] [place], [address], [facility] 08/03/2022 15:41:48 08/17/2022 text/html KneeReported bypatient.Quality:a everton; throbbing Severity:mild Timing:gradual Context:overuse Alleviating Factors:rest; elevation; NSAIDs Associated Symptoms:no weakness; no numbness; no tingling; no redness; no warmth; no ecchymosis; no catching/locking; no buckling; no grinding; no instability; no radiation down leg; no drainage; no fever; no chills; no weight loss; no change in bowel/bladder habits;swelling;pop ping/clicking Cheryl Miramontes PA-C Attn: [address] [place], [address], [facility] 08/17/2022 12:58:26 08/24/2024 text/html Pt presents to establish care as a new patient. C/o mid back pain since she had epidural in 05/2023. Worse with bending and laying down. Describes as sharp pain. States that massaging and stretching does not help. C/o difficulty losing weight despite going to the gym and making healthier food choices. Denies fever, chills, chest pain, SOB, n/v/d, abd pain, dizziness, weakness, or headaches. PARISH SUBRAMANIAN Attn: Accounting[address] [facility], [place], [address], [facility] 08/26/2024 15:53:56 OBGyn Episode No OBEpisode recorded.
[2024-08-28 09:28] LABS: Influenza A QL RT-PCR Positive (Negative); Influenza B QL RT-PCR Negative (Negative); RSV RNA, RT-PCR Negative (Negative); SARS-CoV-2 RNA PCR Negative (Negative)
--- NOTE | 2024-08-28 10:12 | ED.GENADULT ---
HPI - General Adult General Chief complaint: Upper Respiratory Infection Stated complaint: request COVID, Flu Time Seen by Provider: 08/28/24 09:05 History of Present Illness HPI narrative: This is a 29-year-old female presenting with flu-like symptoms. Symptoms started yesterday and include headaches body aches fevers and chills. No nausea vomiting diarrhea. No chest/pain difficulty breathing. Related Data Home Medications ?Medication ?Instructions ?Recorded ?Confirmed ?Last Taken ?Type vit no.95-ferrous 1 tablet PO DAILY 05/13/23 05/23/23 05/31/23 08:00 History fumarate 28 mg-folic acid 800 mcg tablet () Allergies Allergy/AdvReac Type Severity Reaction Status Date / Time No Known Allergies Allergy Mild Verified 05/23/23 14:27 [facility] Past Medical History Medical History (Updated 08/28/24 @ 11:03 by Amos Rm MD) Obese Family History Family History Father Gout Hypertension Mother Hypertension Grandparent Congestive heart failure Hypertension Grandparent No problems noted. Social History Social History Smoking status: Never smoker Substance use: never Do You Feel Safe in your Home?: Yes Lack of Transportation: No Lack of Food: Never True Current Housing: I Have Housing Concerned About Future Housing: No Difficulty Paying Gas/Electric Bills: No Difficulty Paying for Meds: No Currently Unemployed: No Education: Bachelor's Degree Difficulty w/ Childcare or Family Care: No Gender identity (if verbalized by the patient): Female Spiritual care concerns: No Exam Narrative: APPEARANCE: No apparent distress. Head: atraumatic. EYES: EOMI, NOSE: Atraumatic NECK: Trachea midline RESPIRATORY: No increased rate of breathing CTAB CARDIOVASCULAR: Tachycardic, no peripheral edema ABDOMINAL: Non-distended soft nontender MUSCULOSKELETAl: No obvious deformities NEURO: Alert. Moving 4/4 extremities SKIN:: Warm, dry. Normal color PSYCHIATRIC: Normal affect Course Vital Signs Vital signs: Vital Signs Temperature 97.9 F 08/28/24 08:03 Pulse Rate 112 H 08/28/24 08:03 Respiratory Rate 16 08/28/24 08:03 Blood Pressure 120/83 08/28/24 08:03 Pulse Oximetry 99 08/28/24 08:03 Oxygen Delivery Room Air 08/28/24 08:03 Temperature 97.9 F 08/28/24 08:03 Pulse Rate 112 H 08/28/24 08:03 Respiratory Rate 16 08/28/24 08:03 Blood Pressure 120/83 08/28/24 08:03 Pulse Oximetry 99 08/28/24 08:03 Oxygen Delivery Room Air 08/28/24 08:07 Medical Decision Making MDM Narrative Medical decision making narrative: -Course: 29-year-old female presenting with flu-like symptoms. On physical exam she is mildly tachycardic that improved w/ NSaids. She is positive for influenza A. Chest x-ray is clear. EKG showed nonspecific T-wave changes. Patient does not have chest pain, respiratory distress or persistent tachycardia to make me think she has myocarditis. Given Toradol and Tylenol in the ED. Discussed Tamiflu with the patient and she would like a prescription. This was provided. Patient discharged with return precautions. -DDX includes but is not limited to: Flu COVID pneumonia, pericarditis/myocarditis. Vital Signs Vital Signs: Vital Signs Temperature 97.9 F 08/28/24 08:03 Pulse Rate 112 H 08/28/24 08:03 Respiratory Rate 16 08/28/24 08:03 Blood Pressure 120/83 08/28/24 08:03 Pulse Oximetry 99 08/28/24 08:03 Oxygen Delivery Room Air 08/28/24 08:03 Temperature 97.9 F 08/28/24 08:03 Pulse Rate 112 H 08/28/24 08:03 Respiratory Rate 16 08/28/24 08:03 Blood Pressure 120/83 08/28/24 08:03 Pulse Oximetry 99 08/28/24 08:03 Oxygen Delivery Room Air 08/28/24 08:07 Lab Data Labs: Lab Results 08/28/24 Range/Units 08:42 Influenza A (RT-PCR) Positive A (Negative) Influenza B (RT-PCR) Negative (Negative) RSV (RT-PCR) Negative (Negative) SARS-CoV-2 RNA (RT-PCR) Negative (Negative) Discharge Plan Discharge Clinical Impression: Influenza Patient Disposition: Home, Self-Care Condition: Stable Instructions: Antibiotic Form, Influenza (DC) Additional Instructions: You were diagnosed with the flu. Please take Tamiflu as instructed. Use Motrin and Tylenol for fevers/ body aches/headaches. Please follow-up with your primary care physician for further management. If you develop chest pain, difficulty breathing, or your condition is worsening please come back to the ED for re-evaluation. Patient Language: Urdu Prescriptions: New ibuprofen 800 mg tablet 800 mg PO TID PRN (Reason: pain) 7 Days Qty: 21 0RF acetaminophen 500 mg tablet 1,000 mg PO TID PRN (Reason: arnold) 7 Days Qty: 42 0RF oseltamivir 75 mg capsule 75 mg PO Q12H 5 Days Qty: 10 0RF No Action ibuprofen 600 mg Tablet 600 mg PO Q6H PRN (Reason: Cramping) Qty: 30 0RF PNV cmb#95-ferrous fumarate-FA [] 28 mg iron- 800 mcg Tablet 1 tablet PO DAILY cephalexin 500 mg tablet 500 mg PO Q12H 7 Days Qty: 14 0RF Follow-up/Referrals: UNKNOWN,DOCTOR [Primary Care Provider] -
--- NOTE | 2024-08-28 10:14 | ECG_ITS ---
Test Date: 2024-08-28 10:31:52 Measurements Intervals [place] Rate: 74 P: 42 RI: 160 QRS: -6 QRSD: 81 T: -21 QT: 348 QTc: 387 Interpretive Statements SINUS RHYTHM INCOMPLETE RIGHT BUNDLE BRANCH BLOCK MINIMAL VOLTAGE CRITERIA FOR LVH, CONSIDER NORMAL VARIANT [MEETS CRITERIA IN ONE OF: R(aVL), S(V1), R(V5), R(V5/V6)+S(V1)] MODERATE T-WAVE ABNORMALITY, CONSIDER ANTEROLATERAL ISCHEMIA [-0.1+ mV T WAVE IN V3-V6] No previous ECG available for comparison Electronically Signed On 08-28-2024 15:01:08 CDT by Alessio Zee M.D.
--- OUTSIDE RECORDS SUMMARY | 2024-08-28 10:35 | XMS_ITS | Clinical Summary ---
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 Gender Identity Not on file Sexual Orientation Not on file Plan of Treatment Health Maintenance Due Date Last Done Comments Hepatitis C Virus (HCV) Screening 1995 TdaP Immunization 1995 Pap Smear 02/16/2016 Influenza Immunization (#1) 2024 SARS-COV-2 Immunization ( season) 2024 12/21/2020, 11/23/2020 Respiratory Syncytial Virus (RSV) Immunization (Adult) (1 - 1-dose 75+ series) 2070 DTaP/Tdap/Td Immunization Discontinued 1994, 1995 Hepatitis B Immunization Completed 996, 1995, 1995 Meningococcal Immunization (ACWY) Aged Out No longer eligible based on patient's age to complete this topic Pneumococcal Immunization Combined Aged Out No longer eligible based on patient's age to complete this topic Rotavirus Immunization Aged Out No lo nger eligible based on patient's age to complete this topic
--- OUTSIDE RECORDS SUMMARY | 2024-08-28 10:35 | XMS_ITS | Referral Summary ---
Author Organization [facility] Address [address] [place] [address] Care Team Providers Care Customer Service Trainer Name Role Phone Cheryl Miramontes PA-C Primary Care Provider [phone] Source Comments [facility],non-owned Affiliates and Associated Physician Practices is amultiple site organization consisting of ambulatory clinics and hospital sitesin [place], [place], [place] and [place]. This disclosure is being madepursuant to the Care Everywhere program and may not contain all information available regarding this patient. Last updated 18.Yingying Licai Allergies No known active allergies Medications * Be aware that medications may not be up to date on this document. Alwaysverify current medications with the patient. Medication Sig Dispensed Refills Start Date End Date Status Vit-Fe Fumarate-FA ( vitamin) 28-0.8 MG tablet Take 1 (one) tablet by mouth once daily Active Active Problems Problem Noted Date Diagnosed Date Supervision of normal first 05/04/2023 Social History Tobacco Use Types Packs/Day Years Used Date Smoking Tobacco: Never Assessed Sex and Gender Information Value Date Recorded Sex Assigned at Not on file Gender Identity Not on file Sexual Orientation Not on file Last Filed Vital Signs Vital Sign Reading Time Taken Comments Blood Pressure 114/69 05/24/2023 2:49 PM PAVILION CUTTER Pulse 85 05/24/2023 2:49 PM PAVILION CUTTER Temperature - - Respiratory Rate 18 05/09/2023 3:01 PM PAVILION CUTTER Oxygen Saturation - - Inhaled Oxygen Concentration - - Weight - - Height - - Body Mass Index - - Plan of Treatment Not on file Care Teams Customer Service Trainer Relationship Specialty Start Date End Date Cheryl Miramontes PA-C [address] [place] [id number] PCP - General Physician Network Systems Analyst 05/04/23
--- OUTSIDE RECORDS SUMMARY | 2024-08-28 10:35 | XMS_ITS | Clinical Summary ---
Author Organization [employer] Address [address] [place] [address] Care Team Providers Care Rn Stars Name Role Phone Cheryl Miramontes PA-C Primary Care Provider [phone] Source Comments [facility],non-owned Affiliates and Associated Physician Practices is amultiple site organization consisting of ambulatory clinics and hospital sitesin [place], [place], [place] and [place]. This disclosure is being madepursuant to the Care Everywhere program and may not contain all information available regarding this patient. Last updated 18.[employer] Allergies No known active allergies Medications * [...] Comments Blood Pressure 114/69 05/24/2023 2:49 PM QUALITY ANALYST/TECHNICAL WRITER Pulse 85 05/24/2023 2:49 PM QUALITY ANALYST/TECHNICAL WRITER Temperature - - Respiratory Rate 18 05/09/2023 3:01 PM QUALITY ANALYST/TECHNICAL WRITER Oxygen Saturation - - Inhaled Oxygen Concentration - - Weight - - Height - - Body Mass Index - - Plan of Treatment Health Maintenance Due Date Last Done Comments PAP SMEAR 1995 HIV SCREENING 2010 HEPATITIS C SCREENING 02/10/2013 DTAP/TDAP/TD VACCINES (1 - Tdap) 2014 HEPATITIS B VACCINE (1 of 3 - 19+ 3-dose series) 2014 COVID-19 VACCINE (3 - 2023-2 5 season) 2024 12/21/2020, 11/23/2020 INFLUENZA VACCINE (#1) 2024 DEPRESSION SCREENING 06/20/2024 ZOSTER VACCINE (1 of 2) 2045 HIB VACCINE Aged Out No longer eligi ble based on patient's age to complete this topic HPV VACCINE Aged Out No longer eligi ble based on patient's age to complete this topic MENINGOCOCCAL (Group B) VACCINE Aged Out No longer eligible b ased on patient's age to complete this topic MENINGOCOCCAL VACCINE Aged Out No jeferson mel eligible based on patient's age to complete this topic PNEUMOCOCCAL VACCINE Aged Out No long er eligible based on patient's age to complete this topic Care Teams Rn Stars Relationship Specialty Start Date End Date Cheryl Miramontes PA-C [address] [facility] [place] [id number] PCP - General Physician Coagulator 05/04/23
--- OUTSIDE RECORDS SUMMARY | 2024-08-28 10:35 | XMS_ITS | Clinical Summary ---
Author Organization [facility] Address [address] [place] [id number] Care Team Providers Care Sap Bi Architect Name Role Phone None, Provider MD Primary Care Provider Unavaila ble Allergies No known active allergies Medications No known medications Active Problems Estimated Date of Delivery Comme nts Yes 06/12/2023 No known active problems Social History Tobacco Use Types Packs/Day Years Used Date Smoking Tobacco: Never Assessed Estimated Date of Delivery Comme nts Yes 06/12/2023 Sex and Gender Information Value Date Recorded Sex Assigned at Not on file Legal Sex Female 2:35 PM CARPENTER FOREMAN Gender Identity Not on file Sexual Orientation Not on file Last Filed Vital Signs Vital Sign Reading Time Taken Comments Blood Pressure 122/72 03/07/2023 2:22 PM CDT Pulse 90 03/07/2023 2:22 PM CDT Temperature 36.9 C (98.4 F) 03/07/2023 2:22 PM CDT Respiratory Rate 18 03/07/2023 2:22 PM CDT Oxygen Saturation 100% 03/07/2023 2:22 PM CDT Inhaled Oxygen Concentration - - Weight 88.5 kg (195 lb) 03/07/2023 2:22 PM CDT Height 165.1 cm (5' 5 ) 03/07/2023 2:22 PM CDT Body Mass Index 32.45 03/07/2023 2:22 PM CDT Plan of Treatment Health Maintenance Due Date Last Done Comments Cervical Cancer Screening Pa p Smear (Age 21 to 29) Every 3 Years 1995 Cervical Cancer Screening 1995 Annual Physical 1998 Hepatitis C 2013 DTaP, Tdap and Td Vaccines ( 3 - Tdap) 2014 1995, 1995 COVID-19 Vaccine (3 - 2023-2 5 season) 2024 12/21/2020, 11/23/2020 Influenza Adult (#1) 2024 RSV Immunization or 60+ Years (1 - 1-dose 75+ series) 2070 Hepatitis B Vaccines Completed 1995, 1995, 1995 HPV Vaccines Aged Out No longer eligi ble based on patient's age to complete this topic Meningococcal B Vaccine Aged Out No l onger eligible based on patient's age to complete this topic Meningococcal Vaccine Aged Out No jeferson mel eligible based on patient's age to complete this topic Pneumococcal Vaccine: Pediatrics (0 to 5 Years) and At-Risk Patients (6 to 64 Years) Aged Out No longer eligible b ased on patient's age to complete this topic RSV Immunizations Under 20 Months Aged Out No longer eligible b ased on patient's age to complete this topic Insurance MEDICAID Care Teams Sap Bi Architect Relationship Specialty Start Date End Date None, Provider, PCP - General UNKNOWN PHYSICIAN SPECIALTY 07/12/22
--- OUTSIDE RECORDS SUMMARY | 2024-08-28 10:36 | XMS_ITS | Patient Health Summary ---
Author Organization [facility] Address [address] [place] [address] Care Team Providers Care Cabinet Professional Name Role Phone Cheryl Miramontes PA-C Primary Care Provider [phone] Note from [facility],non-owned Affiliates and Associated Physician Practices is amultiple site organization consisting of ambulatory clinics and hospital sitesin [place], [place], [place] and [place]. This disclosure is being madepursuant to the Care Everywhere program and may not contain all information available regarding this patient. Last updated 18.[employer] Allergies No known active allergies Medications * Be aware that medications may not be up to date on this document. Alwaysverify current medications with the patient. * Vit-Fe Fumarate-FA ( vitamin) 28-0.8 MG tablet Take 1 (one) tablet by mouth once daily Active Problems Problem Noted Date Diagnosed Date [...] Comments Blood Pressure 114/69 05/24/2023 2:49 PM FACTORY ASSEMBLER Pulse 85 05/24/2023 2:49 PM FACTORY ASSEMBLER Temperature - - Respiratory Rate 18 05/09/2023 3:01 PM FACTORY ASSEMBLER Oxygen Saturation - - Inhaled Oxygen Concentration - - Weight - - Height - - Body Mass Index - - Procedures * BIOPHYSICAL PROFILE W NST(Performed 05/24/2023) Performed for growth restriction antepartum (HCC), 36 weeks gestation of (HCC), Supervision of normal first , antepartum ([facility]) * BIOPHYSICAL PROFILE W NST(Performed 05/19/2023) Performed for growth restriction antepartum (HCC), 36 weeks gestation of (HCC), Supervision of normal first , antepartum (HCC) * BIOPHYSICAL PROFILE W NST(Performed 05/09/2023) Performed for growth restriction antepartum (HCC), 35 weeks gestation of (HCC), Supervision of normal first , antepartum ([facility]) * SONOGRAM - COMPLETE(Performed 05/04/2023) Performed for Screening, , for anatomic survey ([facility]) Results * BIOPHYSICAL PROFILE W NST (05/24/2023 3:38 PM FACTORY ASSEMBLER) Only the most recent of3 resultswithin the time period is included. Anatomical Region Laterality Modality Other 05/24/2023 3:38 PM FACTORY ASSEMBLER Narrative 05/24/2023 4:43 PM FACTORY ASSEMBLER [facility] [place] PHONE: FAX: Pat. Name: ZEINA ANGULO Pat. No: [id number] Study Date: 05/24/2023 3:38pm , Age: 08 1995, 28 Pregnancies: 1 Height: 65 in Weight: 214 lb LMP: 09/05/2022 GA by LMP: 37w2d GA by Base: 37w2d СЕРГЕЙ: 06/12/2023 GA Selected: 37w2d (From Lillie) СЕРГЕЙ: 06/12/2023 Referring MD: Vini Shelton MD [employer]: Raquel Kinney RDMS, RDCS CPT4: [id number] BMI: 35.61 Hist/Ind: IUGR, Low-risk cf-DNA Class II obesity Heart Rate: 134 bpm Amniotic Fluid Index: 13.3cm (07.4-24.3) Q1: 5.4cm Q2: 2.8cm Q3: 1.5cm Q4: 3.6cm Biophysical Profile: 03/29 Breathin Tone: 2 NST: 2 Movement: 2 AFV: 2 PROCEDURE, TECHNIQUE Technique: transabdominal EVAL, PLACENTA Presentation: cephalic Placenta: posterior Heart Rate: 134 bpm Amniotic Fluid Volume: normal DOPPLER Umbilical - Mid Cord S/D 1.97(1.58 - 3.41) PI 0.67 (0.56 - 1.13) Middle Cerebral Artery PSV 56.4cm/s PI 1.75 (1.27 - 2.34) Med PSV 56.8cm/s MoM 0.99(<1.5) CLINICAL SUMMARY IMPRESSION: Single, live, intrauterine at 37w2d in cephalic presentation Amniotic fluid volume: normal Biophysical profile: Normal (03/29) with reactive NST, normal baseline & moderate BTBV Dopplers studies: Normal UA & MCA vascular resistance RECOMMEND: Continue weekly testing and Dopplers Deliver between 38w0d and 39w0d Thanks for allowing us the opportunity to care for your patient Ravin Vann MD <Electronic Signature> 05/24/2023 04:43pm Marlen Ramirez MD [facility] ORDERABLES * SONOGRAM - COMPLETE (05/04/2023 1:34 PM FACTORY ASSEMBLER) Anatomical Region Laterality Modality Other 05/04/2023 1:34 PM FACTORY ASSEMBLER Narrative 05/04/2023 4:09 PM FACTORY ASSEMBLER [facility] PHONE: FAX: Pat. Name: ZEINA ANGULO Pat. No: [id number] Study Date: 05/04/2023 1:34pm , Age: 08 1995, 28 Pregnancies: 1 Height: 65 in Weight: 214 lb LMP: 09/05/2022 GA by LMP: 34w3d GA by US: 33w5d СЕРГЕЙ: 06/17/2023 GA Selected: 34w3d (LMP) СЕРГЕЙ: 06/12/2023 Referring MD: Vini Shelton MD [employer]: Kinza Lopez RDMS CPT4: [id number] BMI: 35.61 Hist/Ind: SGA on outside scan (AC 2%, EFW 8%) Anatomy NIPT: low risk, male Class II Obesity MEASUREMENTS & AGE GROWTH EVALUATION Measurement GA Range Srce %for GA Ratios ----- ---- ------- BPD 8.7 cm 35w0d (56s1x-13p1h) Hadl BPD 68% FL/BPD 0.74 (0.71 - 0.87) HC 31.4 cm 35w2d (58t7u-18l5q) Hadl HC 35% FL/AC 0.24 (0.20 - 0.24) AC 27.1 cm 31w1d (06q2g-29a2h) Hadl AC <01 HC/AC 1.16 (0.94 - 1.13* FL 6.5 cm 33w2d (74a7c-82r4l) Hadl FL 15% CI 0.80 (0.70 - 0.86) HL 5.8 cm 33w3d (07k3n-57z2m) Gary HL 33% Cere 4.7 cm 35w6d (43a4b-01r0r) Vish Cere74% GA for sonogram 33w5d (97z2d-90f1m) Weight Estimate: based on (BPD,HC,AC,FL) Avg Weight: 1996 gm (1706-2289gm) Had : 4lbs, 6oz Normal: 2464 gm (1848-3080gm) Had Wt% 7% for 34w3d Heart Rate: 135 bpm Amniotic Fluid Index: 13.6cm (08.0-24.8) Q1: 3.4cm Q2: 3.8cm Q3: 4.0cm Q4: 2.4cm Biophysical Profile: 03/29 Breathin Tone: 2 NST: 2 Movement: 2 AFV: 2 PROCEDURE, TECHNIQUE Procedure: Third trimester exam Technique: transabdominal EVAL, PLACENTA Presentation: cephalic Umbilical Cord: 3 Vessels Placenta: posterior Previa: no previa seen Heart Rate: 135 bpm Amniotic Fluid Volume: normal DOPPLER Umbilical - Mid Cord S/D 1.95(1.71 - 3.64) PI 0.66 (0.61 - 1.19) Middle Cerebral Artery PSV 55.6cm/s PI 1.91 (1.51 - 2.70) Med PSV 49.7cm/s MoM 1.12(<1.5) Anatomy!Normal!Abnormal!Suboptimal!Prev. Seen!Comments Cranium ! x ! ! ! ! Mdl (CSP/Thal! x ! ! ! ! Ventricles ! x ! ! ! ! Choroid Plexu! x ! ! ! ! Cerebellum ! x ! ! ! ! Cisterna M. ! x ! ! ! ! Nuchal Fold ! ! ! x ! ! Orbits ! x ! ! ! ! Profile ! x ! ! ! ! Nasal Bone ! x ! ! ! ! Lip ! x ! ! ! ! Spine ! ! ! x ! ! Lungs ! x ! ! ! ! 4 Chamber Hea! x ! ! ! ! LVOT ! x ! ! ! ! RVOT ! x ! ! ! ! 3 Vessel View! x ! ! ! ! 3 Vessel Trac! x ! ! ! ! Cross-over ! x ! ! ! ! Ductal Arch ! ! ! x ! ! Aortic Arch ! ! ! x ! ! Caval View ! x ! ! ! ! Situs ! x ! ! ! ! Diaphragm ! x ! ! ! ! Stomach ! x ! ! ! ! Bowel ! x ! ! ! ! Kidneys ! x ! ! ! ! Bladder ! x ! ! ! ! 3 Vessel Cord! x ! ! ! ! Cord In! ! ! x ! ! Upper Extremi! ! ! x ! ! Hands ! ! ! x ! ! Lower Extremi! ! ! x ! ! Feet ! ! ! x ! ! External Chantel! ! ! x ! ! Placental Cor! ! ! x ! ! CLINICAL SUMMARY Here today for reevaluation of possible SGA/FGR diagnosed at her primary OB providers office 2 weeks ago. She would no complaints today and reported good movements. She had opted for NIPT which was reported as low risk. A single fetus is seen in cephalic presentation. The measurements today are consistent with less than expected growth for the СЕРГЕЙ provided which is suspect for SGA. This may represent either a constitutionally small fetus or evolving growth restriction. The СЕРГЕЙ is based on LMP. The amniotic fluid volume is within normal limits. Normal appearing posterior placenta. Although a complete anatomical survey was not performed due to advanced gestation and position which limited the overall study, no gross abnormalities were noted. however certain structures remains suboptimally visualized due to these limitations. She noted that she had an anatomical survey at her primary OB providers office that showed no gross abnormalities. The FHR baseline was 130 bpm during today's Reactive NST. The FHR variability was moderate. IMPRESSION: Single, live, intrauterine at 34w3d size is suspected SGA/FGR Amniotic fluid volume: within normal limits Biophysical profile: Reassuring 03/29 Doppler studies: Normal UA & MCA vascular resistance No major malformations were seen within the limitations of ultrasound. but certain structures remains suboptimally visualized due to the limitations noted above. The above was discussed with Ms. Angulo who also has a consultation at the [facility] today she understands that this may represent either a constitutionally small fetus but can not rule out evolving growth restriction. Based on Doppler studies there is no evidence of placental insufficiency and will continue with weekly testing including Doppler studies and repeat interval growth ultrasound in 2 weeks depending on those findings also determine timing of delivery which is at either early term or term (37-39 weeks). She also understood the limitations of ultrasound and screening in detecting all congenital anomalies and chromosome abnormalities/inherited disorders or genetic syndromes. RECOMMEND: Continue weekly testing and Doppler studies Repeat growth in 2 weeks and depending on subsequent findings will also determine timing of delivery which at this time may be either early term at term ( 37-39 weeks). But they may change depending if there is a change in the maternal status nonreassuring status or abnormal Doppler studies Which would warrant an earlier delivery. Due to the fact that she works in [place], [place] closer to where she works and lives she would prefer to go to our [place], [place] office for the subsequent studies. Pre term labor along with kick counts and she was instructed when to follow-up with OB triage. Please also refer to [facility] consultation dated today for further details in management. Duane Coffey, <Electronic Signature> 05/04/2023 04:06pm R Krishna Shelton MD [facility] ORDERABLES Care Teams Cabinet Professional Relationship Specialty Start Date End Date Cheryl Miramontes PA-C [address] [place] [id number] PCP - General Physician Blending Coordinator 05/04/23
[2024-08-28] MEDS: ACETAMINOPHEN 500 MG TABLET 1000 MG PO (10:39)
[2024-08-28] MEDS: KETOROLAC 30 MG/ML VIAL (*BKC) IM (10:39)
== END 2024-08-28 11:15 | disposition home or self-care (01) ==
PROVIDERS: Emergency Provider Emergency Medicine
DX: J10.1 Influenza due to other identified influenza virus with other respiratory manifestations (principal); I45.10 Unspecified right bundle-branch block
CPT/HCPCS: 71045; 87637; 93005; 96372; 99283; A9270; J1885